=== PATIENT | male | born 1965 | race Caucasian/White ===

== ENCOUNTER 2024-04-13 09:09 | Observation (INO) | payer OTHER, SELFPAY ==
[2024-04-13] VITALS (52 sets, daily range): BP systolic 85–267; BP diastolic 46–130; PULSE 60–97; RESP 12–22; TEMP 36.6–37.2; O2SAT 94–100; BMI 29.5
--- NOTE | 2024-04-13 09:24 | DI.RAD.S_ITS ---
PROCEDURE: XR CHEST 1V INDICATIONS: chest pain TECHNIQUE: One view of the chest was acquired. COMPARISON: None. FINDINGS: Surgical changes and devices: None. Lungs and pleura: Lungs are clear. No pleural effusions or pneumothorax. Mediastinum: Mediastinal contours appear normal. Heart size is normal. Bones and chest wall: No suspicious bony lesions. Overlying soft tissues appear unremarkable. IMPRESSION: No acute cardiopulmonary abnormality is seen. Dictated by: Edgard Ndiaye M.D. on 04/13/2024 at 9:39 Approved by: Edgard Ndiaye M.D. on 04/13/2024 at 9:39
--- NOTE | 2024-04-13 09:30 | ED.GENADULT ---
HPI - General Adult General Chief complaint: Hypertension Stated complaint: High BP Time Seen by Provider: 04/13/24 09:30 Source: patient Mode of arrival: Family Vehicle History of Present Illness HPI narrative: 58-year-old male with elevated blood pressure, went to the dentist, in the office he found to have elevated blood pressures, referred to clinic, blood pressure also elevated, referred here for further treatment. He denies chest pain shortness of breath. He denies headache. He denies numbness or weakness to face arm or leg. He moved from [place] to [facility], has not found local provider, ran out of his previous blood pressure medications, believes he used to be on lisinopril, might have also been on metoprolol, also took atorvastatin medication. No recent illness symptoms, denies fever, denies nausea vomiting, denies abdominal discomfort, denies chest discomfort, denies pain to arm jaw back chest. Denies any sensation of shortness of breath. Related Data Home Medications Medication Instructions Recorded Confirmed losartan 100 1 tab PO DAILY 04/13/24 04/13/24 mg-hydrochlorothiazide 25 mg tablet Allergies Allergy/AdvReac Type Severity Reaction Status Date / Time No Known Drug Allergies Allergy Verified 04/13/24 09:27 Review of Systems Review of Systems Narrative: As per HPI Patient History Social History household members: none Smoking Status: Never smoker Smoking Status: Never smoker alcohol intake frequency: 0-2 drinks per day Substance Use Type: does not use Exam Narrative Exam Narrative: GENERAL: Well-developed patient, in no distress. HEAD: Atraumatic. Normocephalic. EYES: Pupils equal round and reactive. Extraocular motions intact. No scleral icterus. No injection or drainage. ENT: Nose without bleeding, purulent drainage. Throat without erythema, tonsillar hypertrophy or exudate. Airway patent. NECK: Trachea midline. Non tender CARDIOVASCULAR: Regular rate and rhythm without murmurs, gallops, or rubs. RESPIRATORY: Clear to auscultation. Breath sounds equal bilaterally. No wheezes, rales, or rhonchi. GASTROINTESTINAL: Abdomen soft, non-tender, nondistended. EXTREMITIES: No edema or joint tenderness. BACK: Nontender without deformity or crepitance. No flank tenderness. NEURO: AOx3. Nonfocal neuro exam. SKIN: No rash or erythema of visible areas Initial Vital Signs Initial Vital Signs: Vital Signs Temperature 99 F 04/13/24 09:24 Pulse Rate 80 04/13/24 09:24 Respiratory Rate 18 04/13/24 09:24 Blood Pressure 267/129 H 04/13/24 09:24 Pulse Oximetry 97 04/13/24 09:24 Oxygen Delivery Method Room Air 04/13/24 09:24 Course Orders Ordered: ED Orders 04/13/24 14:56 Troponin I Stat 04/13/24 15:53 EKG-12 Lead Stat 04/13/24 16:11 EKG-12 Lead Routine 04/13/24 16:16 CT angio chest abdomen pelvis Stat Acetaminophen (Acetaminophen 325 Mg Tablet) 650 mg PO Q6H PRN PRN Reason: Fever/Mild Pain (1-3) Aspirin (Aspirin Ec 81 Mg Tablet) 81 mg PO DAILY [facility] Chlorthalidone (Chlorthalidone 25 Mg Tablet) 12.5 mg PO BEDTIME [facility] Last Admin: 04/13/24 21:19 Dose: 12.5 mg Documented By: JULIO Dextrose (D10w) 100 mls @ 999 mls/hr IV PRN PRN PRN Reason: Hypoglycemia Insulin Glargine (Insulin Glargine 100 Unit/Ml 3ml Pen) 15 unit SUBCUT 2100 [facility] Last Admin: 04/13/24 21:23 Dose: 15 unit Documented By: JULIO Co-signed By: CARLOS Insulin Human Lispro (Insulin Lispro 100 Unit/Ml 3ml Vial) 0 unit SUBCUT ACHS [facility]; Protocol Last Admin: 04/13/24 21:23 Dose: 3 unit Documented By: JULIO Co-signed By: CARLOS Labetalol HCl (Labetalol 20 Mg/4 Ml Syringe) 10 mg IV Q10MIN PRN PRN Reason: SBP>= 180 or DBP >=110 Lisinopril (Lisinopril 20 Mg Tablet) 20 mg PO DAILY [facility] Naloxone HCl (Naloxone 0.4 Mg/Ml Vial) 0.2 mg IV Q2MIN PRN PRN Reason: Opiate Reversal Ondansetron HCl (Ondansetron 4 Mg/2 Ml Inj) 4 mg IV Q4HR PRN PRN Reason: Nausea And Vomiting Sodium Chloride (Sodium Chloride 0.9% Flush) 10 ml IV PRN PRN PRN Reason: Flush Sodium Chloride (Sodium Chloride 0.9% Flush) 10 ml IV BID [facility] Discontinued Medications Aspirin (Aspirin 81 Mg Chew Tab) 324 mg PO NOW ONE Stop: 04/13/24 09:25 Last Admin: 04/13/24 09:40 Dose: 324 mg Documented By: Carvedilol (Carvedilol 3.125 Mg Tablet) 3.125 mg PO BID TRINO Hydralazine HCl (Hydralazine 20 Mg/Ml Vial) 10 mg IV Q6HR PRN PRN Reason: Hypertension Last Admin: 04/13/24 09:40 Dose: 10 mg Documented By: Hydralazine HCl (Hydralazine 20 Mg/Ml Vial) 20 mg IV NOW ONE Stop: 04/13/24 11:29 Last Admin: 04/13/24 11:35 Dose: 20 mg Documented By: THAD Sodium Chloride (Normal Saline 0.9%) 1,000 mls @ 500 mls/hr IV BOLUS ONE Stop: 04/13/24 12:57 Last Infusion: 04/13/24 13:06 Dose: Infused Documented By: Admin: 04/13/24 11:12 Dose: 500 mls/hr Documented By: THAD Sodium Chloride (Normal Saline 0.9%) 1,000 mls @ 1,000 mls/hr IV BOLUS ONE Stop: 04/13/24 14:11 Last Infusion: 04/13/24 14:27 Dose: Infused Documented By: Admin: 04/13/24 13:18 Dose: 1,000 mls/hr Documented By: DARIUS Insulin Human Regular (Insulin Regular 100 Unit/Ml 3 Ml Vial) 5 unit SUBCUT NOW ONE Stop: 04/13/24 10:56 Last Admin: 04/13/24 11:07 Dose: 5 unit Documented By: THAD Co-signed By: DARIUS Labetalol HCl (Labetalol 20 Mg/4 Ml Syringe) 10 mg IV NOW ONE Stop: 04/13/24 09:42 Last Admin: 04/13/24 09:57 Dose: 10 mg Documented By: THAD Lisinopril (Lisinopril 20 Mg Tablet) 20 mg PO NOW ONE Stop: 04/13/24 10:55 Last Admin: 04/13/24 11:05 Dose: 20 mg Documented By: THAD Vital Signs Vital signs: Vital Signs - 8 hr 04/13/24 14:45 04/13/24 14:45 04/13/24 15:00 Pulse Rate 80 78 Respiratory Rate 17 Blood Pressure 171/79 H Pulse Oximetry 96 95 04/13/24 15:00 04/13/24 15:15 04/13/24 15:15 Pulse Rate 80 Respiratory Rate 21 Blood Pressure 174/74 H 178/83 H Pulse Oximetry 95 04/13/24 15:30 04/13/24 15:30 04/13/24 15:45 Pulse Rate 78 Respiratory Rate 22 Blood Pressure 169/75 H 173/81 H Pulse Oximetry 96 04/13/24 15:45 04/13/24 16:00 04/13/24 16:00 Pulse Rate 80 79 Respiratory Rate 17 21 Blood Pressure 168/75 H Pulse Oximetry 96 97 04/13/24 16:15 04/13/24 16:15 04/13/24 16:30 Pulse Rate 81 84 Respiratory Rate 20 15 Blood Pressure 172/82 H Pulse Oximetry 97 98 04/13/24 17:03 04/13/24 17:30 04/13/24 18:00 Pulse Rate 97 H 76 77 Respiratory Rate 16 14 Blood Pressure Pulse Oximetry 98 97 97 Medical Decision Making Lab Data Lab results reviewed: Yes I reviewed the patient's lab results. 04/13/24 09:28 04/13/24 09:28 Labs: Lab Results 04/13/24 04/13/24 04/13/24 Range/Units 09:28 09:32 14:56 WBC 6.2 (4.5-11.0) X10^3/uL RBC 5.49 (4.5-5.9) X10^6/uL Hgb 17.1 (13.5-17.5) g/dL Hct 47.6 (41-53) % MCV 86.7 (80-100) fL MCH 31.1 (26-34) PG MCHC 35.8 (30-36) % RDW 13.0 (11.6-14.8) % Plt Count 217 (150-400) X10^3/uL Neut % (Auto) 69.8 (50-75) % Lymph % (Auto) 21.7 L (25-40) % Wise % (Auto) 6.2 (3-14) % Eos % (Auto) 1.7 L (2-4) % Baso % (Auto) 0.6 (0-2) % Neut # (Auto) 4300 (9703-5436) /uL Lymph # (Auto) 1300 (7115-8537) /uL Wise # (Auto) 400 (0-900) /uL Eos # (Auto) 100 (0-450) /uL Baso # (Auto) 0 (0-100) /uL PT 10.8 (9.4-12.5) SECONDS INR 0.9 (0.9-1.3) APTT 35 (25.1-36.5) SECONDS Sodium 136 L (137-145) mmol/L Potassium 3.9 (3.4-5.1) mmol/L Chloride 98 (98-107) mmol/L Carbon Dioxide 32 (22-32) mmol/L BUN 14 (9-20) mg/dL Creatinine 0.75 (0.66-1.25) mg/dL Estimated GFR > 60 (>60) mL/min BUN/Creatinine Ratio 18.7 (6-22) Glucose 378 H (70-100) mg/dL Hemoglobin A1c 11.6 H (4.0-6.0) % Calcium 9.1 (8.4-10.2) mg/dL Magnesium 2.1 (1.6-2.3) mg/dL Total Bilirubin 0.9 (0.2-1.3) mg/dL AST 24 (17-59) IU/L ALT 30 (<50) IU/L Alkaline Phosphatase 102 (38-126) U/L Total Creatine Kinase 115 (55-170) U/L Troponin I < 0.012 0.016 (0.01-0.034) ng/mL Total Protein 7.9 (6.3-8.2) g/dL Albumin 4.7 (3.5-5.0) g/dL Globulin 3.2 (1.7-4.1) g/dL Albumin/Globulin Ratio 1.5 (1.0-2.8) Triglycerides 192 H (35-150) mg/dL Cholesterol 185 (140-199) mg/dL LDL Cholesterol, Calc 106 H (<100) mg/dL HDL Cholesterol 41 (40-60) mg/dL Lipase 135 (23-300) U/L TSH 3.04 (0.47-4.68) uIU/mL Point of Care Testing Glucose POC 328 Point of care testing: Point of Care Testing Glucose POC 328 Imaging Data Chest x-ray: Radiologist's Impression: [address] [id number] XRay Report Signed Patient: Ford Asif MR#: [id number] : 1965 Acct:[id number] Age/Sex: 58 / M Date of Service: 04/13/24 Loc: ED Accession Number: [id number] Procedure: XR chest 1V Ordering Provider: Mando Harris MD PROCEDURE: XR CHEST 1V INDICATIONS: chest pain TECHNIQUE: One view of the chest was acquired. COMPARISON: None. FINDINGS: Surgical changes and devices: None. Lungs and pleura: Lungs are clear. No pleural effusions or pneumothorax. Mediastinum: Mediastinal contours appear normal. Heart size is normal. Bones and chest wall: No suspicious bony lesions. Overlying soft tissues appear unremarkable. IMPRESSION: No acute cardiopulmonary abnormality is seen. Dictated by: Edgard Ndiaye M.D. on 04/13/2024 at 9:39 Approved by: Edgard Ndiaye M.D. on 04/13/2024 at 9:39 CT Chest Abdomen Pelvis: Radiologist's Impression: [address] [address] [address] Scan Report Signed Patient: Ford Asif MR#: [id number] : 1965 Acct:[id number] Age/Sex: 58 / M Date of Service: 04/13/24 Loc: ED Accession Number: [id number] Procedure: CT angio chest abdomen pelvis Ordering Provider: Mando Harris MD PROCEDURE: CT ANGIO CHEST ABDOMEN PELVIS INDICATIONS: aortogram, very elevated BP TECHNIQUE: Precontrast 5 mm thick sections acquired from the lung apices to the iliac crests. After the administration of intravenous contrast, 2.5 mm thick sections again acquired from the lung apices to the iliac crests. Maximum intensity projection (MIP) oblique sagittal and coronal reformats were then acquired. For radiation dose reduction, the following was used: automated exposure control. COMPARISON: None. FINDINGS: Image quality: Diagnostic. AORTA: Thoracic aorta is normal caliber. Great vessel origins are widely patent and appear normal. No dissection or aortic aneurysm. No intramural hematoma. Descending thoracic and abdominal aorta are also normal caliber. Minimal scattered calcific atherosclerotic plaque. CHEST: Lower Neck: No adenopathy. Thyroid: Normal CT appearance. Axillae: No adenopathy. Chest Wall: No suspicious mass. Lungs and Pleura: Central and peripheral airways are normal without bronchial wall thickening or bronchiectasis. No suspicious nodule, mass, ground-glass opacity, or consolidation. No pleural effusion or pleural calcification. Heart: The heart size is normal. Left ventricular myocardium appears subjectively thickened. No pericardial effusion. Thoracic Vessels: Dilated pulmonary outflow tract at 3.5 cm. Normal caliber pulmonary arteries. Mediastinum and Francisca: No enlarged lymph nodes. Esophagus: No wall thickening. No hiatal hernia. ABDOMEN: Liver: No contour deforming solid mass in the absence of contrast. Gallbladder: No wall thickening or calcified stones. Biliary ducts: No biliary dilation. Pancreas: Normal size and morphology without visible ductal dilatation or inflammation. Spleen: Size is within normal limits. Adrenal Glands: No adrenal nodules. Kidneys and Ureters: Symmetric enhancement. No nephrolithiasis or hydronephrosis. No hydroureter. Stomach and Bowel: Stomach and small bowel loops are normal caliber. Normal quantity of colonic stool. No suspicious colon wall thickening or inflammation. Normal appendix. Peritoneum: No abnormal intraperitoneal fluid. No free air. Ventral Wall: No hernia. Abdominal Nodes: No retroperitoneal or mesenteric adenopathy by size criteria. Vessels: Inferior vena cava is normal in size. PELVIS: Pelvic Organs: Mild prostatomegaly. Bladder: Distended. No wall thickening. Pelvic Nodes: No enlarged lymph nodes. Miscellaneous: Small bilateral fat containing inguinal hernias. Bones: No suspicious bone lesions. IMPRESSION: Normal aorta without acute aortic syndrome. Possible left ventricular hypertrophy. Consider cardiology consult. Dilated pulmonary outflow tract may indicate pulmonary artery hypertension. No other acute process in the chest, abdomen, or pelvis. Dictated by: Talita Brewster M.D. on 04/13/2024 at 17:06 Approved by: Talita Brewster M.D. on 04/13/2024 at 17:15 ECG Data Attestation: I personally reviewed and interpreted this ECG as follows: Interpretation: Study 0928, Normal sinus rhythm with rate of 81, upsloping ST segment elevation changes lead 3 and F also V2 V3, favor early Re pole. SD 180, QRS 112, QTC 460. Study 1611, normal sinus rhythm with rate of 81, same upsloping ST segment elevations lead 3 and F, V2 V3, no change in intervals. No significant change from previous EKG this visit. [facility] Narrative Medical decision making narrative: 58-year-old male with history of hypertension, off lisinopril and metoprolol medications after moving from [place] to [facility], no local established provider, at dentist office this morning had elevated blood pressure, at triage here also markedly elevated, 267/129 similar in both arms, without chest pain, without neuro symptoms. EKG shows normal sinus rhythm, no obvious ischemic changes. Chest x-ray portable study without obvious mediastinal widening, no pleural capping. Lab tests pending. Heart rate 70s, IV labetalol 10 mg, IV hydralazine 10 mg, we will likely give his oral medications, check GFR/creatinine to see the CASSIDY-inhibitor appropriate. Systolic blood pressure 200, decreased from 260 after IV hydralazine and labetalol, GFR normal, we will give oral lisinopril dose. Elevated glucose 300s, normal anion gap, doubt DKA, potassium level normal, IV fluid bolus, subcutaneous regular insulin, we will send hemoglobin A1c for follow up provider CT aortogram showed no coarctation or abnormalities. No renovascular abnormalities noted. We will repeat troponin, contact cardiology for follow up Repeat troponin negative. We will contact cardiology for follow up recommendations. Case discussed with cardiology Dr. Longoria, advises admission to further titrate blood pressure control and also for diabetes control. We will contact hospitalist [id number], case discussed with hospitalist Dr. Garcia, accepts patient to observation Critical Care Time Critical Care Time Critical Care Time: Yes Total Critical Care Time: 31 Attestation: The high probability of a clinically significant, sudden or life threatening deterioration of the [cardiopulmonary] system(s) required my full and direct attention, intervention and personal management. The aggregate critical care time was [31] minutes. This time is in addition to time spent performing reported procedures but includes the following: [x] Data Review and interpretation [x] Patient assessment and monitoring of vital signs [x] Documentation [x] Medication orders and management Discharge Plan Departure Patient Disposition: Admitted as Observation Clinical Impression: Hypertensive urgency, Diabetes mellitus Admit Date/Time: 04/13/24 18:00 Admit Provider: Mariusz Garcia
[2024-04-13] MEDS: HYDRALAZINE 20 MG/ML VIAL 10 MG IV (09:40)
[2024-04-13] MEDS: ASPIRIN 81 MG CHEW TAB 324 MG PO (09:40)
[2024-04-13 09:43] LABS: INR 0.9 (0.9-1.3); Prothrombin Time 10.8 SECONDS (9.4-12.5)
[2024-04-13 09:45] LABS: PTT Partial Thromboplastin Tim 35 SECONDS (25.1-36.5)
[2024-04-13 09:47] LABS: Alanine Aminotransferase 30 IU/L (<50); Albumin 4.7 g/dL (3.5-5.0); Albumin Globulin Ratio 1.5 (1.0-2.8); Alkaline Phosphatase 102 U/L (38-126); Aspartate Aminotransferase 24 IU/L (17-59); BUN Creatinine Ratio 18.7 (6-22); Bilirubin Total 0.9 mg/dL (0.2-1.3); Blood Urea Nitrogen 14 mg/dL (9-20); Calcium 9.1 mg/dL (8.4-10.2); Carbon Dioxide 32 mmol/L (22-32); Chloride 98 mmol/L (98-107); Creatine Kinase 115 U/L (55-170); Estimated Glomerular Filt Rate > 60 mL/min (>60); Globulin 3.2 g/dL (1.7-4.1); Glucose 378 mg/dL (70-100); HEMOLYSIS < 15 (0-50); Lipase 135 U/L (23-300); Magnesium 2.1 mg/dL (1.6-2.3); Potassium 3.9 mmol/L (3.4-5.1); Sodium 136 mmol/L (137-145); Total Protein 7.9 g/dL (6.3-8.2)
[2024-04-13 09:57] LABS: Add Manual Diff / Slide Review NO; Basophils Absolute Auto 0 /uL (0-100); Basophils Percent Auto 0.6 % (0-2); Eosinophils Absolute Auto 100 /uL (0-450); Eosinophils Percent Auto 1.7 % (2-4); Hematocrit 47.6 % (41-53); Hemoglobin 17.1 g/dL (13.5-17.5); Lymphocytes Absolute Auto 1300 /uL (1100-4500); Lymphocytes Percent Auto 21.7 % (25-40); Mean Corpuscular HGB Conc 35.8 % (30-36); Mean Corpuscular Hemoglobin 31.1 PG (26-34); Mean Corpuscular Volume 86.7 fL (80-100); Monocytes Absolute Auto 400 /uL (0-900); Monocytes Percent Auto 6.2 % (3-14); Neutrophils Absolute Auto 4300 /uL (1500-7000); Neutrophils Percent Auto 69.8 % (50-75); Platelet Count 217 X10^3/uL (150-400); Red Blood Cell Count 5.49 X10^6/uL (4.5-5.9); White Blood Cell Count 6.2 X10^3/uL (4.5-11.0)
[2024-04-13] MEDS: LABETALOL 20 MG/4 ML SYRINGE 10 MG IV (09:57)
[2024-04-13 09:59] LABS: Troponin I < 0.012 ng/mL (0.01-0.034)
[2024-04-13] MEDS: lisinopriL 20 MG TABLET PO (11:05)
[2024-04-13] MEDS: INSULIN REGULAR 100 UNIT/ML 3 ML VIAL SUBCUT (11:07)
[2024-04-13] MEDS: SODIUM CHLORIDE 0.9% 1,000 ML 500 ML IV (11:12)
[2024-04-13 11:18] LABS: Hemoglobin A1C% w Est Avg Glu 11.6 % (4.0-6.0)
[2024-04-13] MEDS: HYDRALAZINE 20 MG/ML VIAL IV (11:35)
--- NOTE | 2024-04-13 12:35 | PC.NURSE ---
Pt states he has not taken his bp meds x3 months due [place]. Pt states he was at the dentist office when they stated he needed to come to the ER to have his bp addressed. Pt states he has no headache, blurred vision--pt states he is asymptomatic.
[2024-04-13] MEDS: SODIUM CHLORIDE 0.9% 1,000 ML 1000 ML IV (13:18)
[2024-04-13 15:29] LABS: Troponin I 0.016 ng/mL (0.01-0.034)
--- NOTE | 2024-04-13 15:46 | CM.MNRNOTE ---
Reassess; no change. Pt remains asymptomatic.
--- NOTE | 2024-04-13 16:16 | DI.CT.S_ITS ---
PROCEDURE: CT ANGIO CHEST ABDOMEN PELVIS INDICATIONS: aortogram, very elevated BP TECHNIQUE: Precontrast 5 mm thick sections acquired from the lung apices to the iliac crests. After the administration of intravenous contrast, 2.5 mm thick sections again acquired from the lung apices to the iliac crests. Maximum intensity projection (MIP) oblique sagittal and coronal reformats were then acquired. For radiation dose reduction, the following was used: automated exposure control. COMPARISON: None. FINDINGS: Image quality: Diagnostic. AORTA: Thoracic aorta is normal caliber. Great vessel origins are widely patent and appear normal. No dissection or aortic aneurysm. No intramural hematoma. Descending thoracic and abdominal aorta are also normal caliber. Minimal scattered calcific atherosclerotic plaque. CHEST: Lower Neck: No adenopathy. Thyroid: Normal CT appearance. Axillae: No adenopathy. Chest Wall: No suspicious mass. Lungs and Pleura: Central and peripheral airways are normal without bronchial wall thickening or bronchiectasis. No suspicious nodule, mass, ground-glass opacity, or consolidation. No pleural effusion or pleural calcification. Heart: The heart size is normal. Left ventricular myocardium appears subjectively thickened. No pericardial effusion. Thoracic Vessels: Dilated pulmonary outflow tract at 3.5 cm. Normal caliber pulmonary arteries. Mediastinum and Francisca: No enlarged lymph nodes. Esophagus: No wall thickening. No hiatal hernia. ABDOMEN: Liver: No contour deforming solid mass in the absence of contrast. Gallbladder: No wall thickening or calcified stones. Biliary ducts: No biliary dilation. Pancreas: Normal size and morphology without visible ductal dilatation or inflammation. Spleen: Size is within normal limits. Adrenal Glands: No adrenal nodules. Kidneys and Ureters: Symmetric enhancement. No nephrolithiasis or hydronephrosis. No hydroureter. Stomach and Bowel: Stomach and small bowel loops are normal caliber. Normal quantity of colonic stool. No suspicious colon wall thickening or inflammation. Normal appendix. Peritoneum: No abnormal intraperitoneal fluid. No free air. Ventral Wall: No hernia. Abdominal Nodes: No retroperitoneal or mesenteric adenopathy by size criteria. Vessels: Inferior vena cava is normal in size. PELVIS: Pelvic Organs: Mild prostatomegaly. Bladder: Distended. No wall thickening. Pelvic Nodes: No enlarged lymph nodes. Miscellaneous: Small bilateral fat containing inguinal hernias. Bones: No suspicious bone lesions. IMPRESSION: Normal aorta without acute aortic syndrome. Possible left ventricular hypertrophy. Consider cardiology consult. Dilated pulmonary outflow tract may indicate pulmonary artery hypertension. No other acute process in the chest, abdomen, or pelvis. Dictated by: Talita Brewster M.D. on 04/13/2024 at 17:06 Approved by: Talita Brewster M.D. on 04/13/2024 at 17:15
--- NOTE | 2024-04-13 18:00 | PM.HP.1 ---
History of Present Illness History of Present Illness Date Patient Seen: 04/13/24 Chief complaint: High BP Narrative: Ford Asif is a 58yo M with PMH of HTN who presents to the ED after being found at the dentist's office to have blood pressures of 230/140. Patient recently moved from [facility] and hasn't taken any of his medications for 3 months. He previously was on blood pressure meds for over 10 years and he took lisinopril and metoprolol. He also previously used insulin, metformin and a CGM device. 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 He denies headache, CP, NV, abd pain, vertigo, visual changes or LE swelling. [facility] Social History household members: none Smoking Status: Never smoker Meds Home Medications and Allergies Allergies Allergy/AdvReac Type Severity Reaction Status Date / Time No Known Drug Allergies Allergy Verified 04/13/24 09:27 Review of Systems Review of Systems Narrative: All other systems reviewed with the patient and are negative unless otherwise stated. Exam Vital Signs (past 8 hours): - 04/13/24 10:01 04/13/24 10:01 04/13/24 10:10 Pulse Rate 79 70 Respiratory Rate 15 Blood Pressure 249/119 H Pulse Oximetry 98 98 04/13/24 10:10 04/13/24 10:21 04/13/24 10:21 Pulse Rate 71 Respiratory Rate 17 Blood Pressure 228/100 H 202/98 H Pulse Oximetry 96 04/13/24 10:30 04/13/24 10:30 04/13/24 10:40 Pulse Rate 73 72 Respiratory Rate 13 14 Blood Pressure 213/100 H Pulse Oximetry 96 95 04/13/24 10:40 04/13/24 10:41 04/13/24 10:41 Pulse Rate 71 Respiratory Rate 12 Blood Pressure 206/100 H 213/99 H Pulse Oximetry 95 04/13/24 10:50 04/13/24 10:50 04/13/24 11:00 Pulse Rate 72 Respiratory Rate 19 Blood Pressure 201/92 H 208/100 H Pulse Oximetry 94 04/13/24 11:00 04/13/24 11:11 04/13/24 11:11 Pulse Rate 73 75 Respiratory Rate 16 14 Blood Pressure 228/107 H Pulse Oximetry 94 96 04/13/24 11:20 04/13/24 11:20 04/13/24 11:30 Pulse Rate 72 70 Respiratory Rate 19 19 Blood Pressure 207/97 H Pulse Oximetry 94 96 04/13/24 11:30 04/13/24 11:35 04/13/24 11:39 Pulse Rate 71 74 Respiratory Rate 15 Blood Pressure 201/98 H 201/98 H Pulse Oximetry 95 04/13/24 11:39 04/13/24 11:40 04/13/24 11:40 Pulse Rate 74 Respiratory Rate 17 Blood Pressure 186/88 H 174/81 H Pulse Oximetry 94 04/13/24 11:50 04/13/24 11:50 04/13/24 12:00 Pulse Rate 81 Respiratory Rate 14 Blood Pressure 185/83 H 177/68 H Pulse Oximetry 95 04/13/24 12:00 04/13/24 12:10 04/13/24 12:10 Pulse Rate 79 80 Respiratory Rate 12 13 Blood Pressure 175/77 H Pulse Oximetry 94 94 04/13/24 12:20 04/13/24 12:20 04/13/24 12:30 Pulse Rate 80 Respiratory Rate 16 Blood Pressure 163/71 H 165/73 H Pulse Oximetry 94 04/13/24 12:30 04/13/24 12:40 04/13/24 12:40 Pulse Rate 80 75 Respiratory Rate 14 13 Blood Pressure 150/59 H Pulse Oximetry 95 94 04/13/24 12:50 04/13/24 12:50 04/13/24 13:00 Pulse Rate 73 Respiratory Rate 16 Blood Pressure 133/61 121/56 L Pulse Oximetry 96 04/13/24 13:00 04/13/24 13:10 04/13/24 13:10 Pulse Rate 67 Respiratory Rate 13 Blood Pressure 85/46 L Pulse Oximetry 96 97 04/13/24 13:12 04/13/24 13:12 04/13/24 13:21 Pulse Rate 60 Respiratory Rate 17 Blood Pressure 96/51 L 110/80 Pulse Oximetry 97 04/13/24 13:21 04/13/24 13:21 04/13/24 13:22 Pulse Rate 72 Respiratory Rate 15 Blood Pressure 119/58 L 110/60 Pulse Oximetry 95 04/13/24 13:30 04/13/24 13:30 04/13/24 13:45 Pulse Rate 71 69 Respiratory Rate 21 18 Blood Pressure 132/60 Pulse Oximetry 97 95 04/13/24 13:45 04/13/24 14:00 04/13/24 14:00 Pulse Rate 72 Respiratory Rate Blood Pressure 148/67 H 150/69 H Pulse Oximetry 96 04/13/24 14:15 04/13/24 14:15 04/13/24 14:30 Pulse Rate 73 80 Respiratory Rate 19 20 Blood Pressure 161/74 H Pulse Oximetry 97 95 04/13/24 14:30 04/13/24 14:45 04/13/24 14:45 Pulse Rate 80 Respiratory Rate Blood Pressure 170/77 H 171/79 H Pulse Oximetry 96 04/13/24 15:00 04/13/24 15:00 04/13/24 15:15 Pulse Rate 78 80 Respiratory Rate 17 21 Blood Pressure 174/74 H Pulse Oximetry 95 95 04/13/24 15:15 04/13/24 15:30 04/13/24 15:30 Pulse Rate 78 Respiratory Rate 22 Blood Pressure 178/83 H 169/75 H Pulse Oximetry 96 Oxygen Delivery Method Room Air Narrative Exam Narrative: GEN: no acute distress HEENT: moist mucous membranes, PERRL NECK: trachea midline, no JVD CV: regular rate and rhythm, no murmurs PULM: clear bilaterally ABD: soft, nontender, nondistended, no organomegaly EXT: warm and well perfused with no edema NEURO: awake, alert, oriented, no focal deficits Objective Labs 04/13/24 09:28 04/13/24 09:28 Labs: Laboratory Results - last 24 hr 04/13/24 04/13/24 04/13/24 09:28 09:32 14:56 WBC 6.2 RBC 5.49 Hgb 17.1 Hct 47.6 MCV 86.7 MCH 31.1 MCHC 35.8 RDW 13.0 Plt Count 217 Neut % (Auto) 69.8 Lymph % (Auto) 21.7 L Thayer % (Auto) 6.2 Eos % (Auto) 1.7 L Baso % (Auto) 0.6 Neut # (Auto) 4300 Lymph # (Auto) 1300 Thayer # (Auto) 400 Eos # (Auto) 100 Baso # (Auto) 0 PT 10.8 INR 0.9 APTT 35 Sodium 136 L Potassium 3.9 Chloride 98 Carbon Dioxide 32 BUN 14 Creatinine 0.75 Estimated GFR > 60 BUN/Creatinine Ratio 18.7 Glucose 378 H Hemoglobin A1c 11.6 H Calcium 9.1 Magnesium 2.1 Total Bilirubin 0.9 AST 24 ALT 30 Alkaline Phosphatase 102 Total Creatine Kinase 115 Troponin I < 0.012 0.016 Total Protein 7.9 Albumin 4.7 Globulin 3.2 Albumin/Globulin Ratio 1.5 Lipase 135 Assessment & Plan Assessment & Plan narrative: # hypertensive urgency -BP 267/129 in ED, patient asymptomatic -start lisinopril and chlorthalidone -IV labetalol PRN -check echo -check renin/aldosterone ratio, UA, protein/creatinine ratio, TSH, lipids, repeat trop -tele # uncontrolled DM2 -A1c 11%, previously on metformin and insulin -start lantus 15u, restart metformin on discharge -SSI -coordinate measuring 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 DVT prophylaxis with SCDs. I have reviewed home meds and used all available resources to reconcile the home meds. Case discussed with ED physician/APC and patient will be admitted to the hospitalist service for further workup and management. This patient will be admitted as observation and will require less than 2 midnights of hospital time to treat hypertensive urgency.
--- NOTE | 2024-04-13 18:05 | DI.ECHO.S_ITS ---
[facility]+ [facility] : : [address] : [place] : : [id number] : : Phone: [phone] Echocardiogram Report + + :Name: ALANIS CAMEJO Study Date: 04/14/2024 Height: 78 in : :Hospital ReadingLocation: Weight: 260 lb : : Gender: Male BSA: 2.5 m2 : :: 1965 Age: 58 yrs BP: 165/81 mmHg: :Reason For Study: HYPERTENSIVE URGENCY : :Ordering Physician: SEBASTIAN, : :MALIK Ross Performed By: Ghislaine Stoddard : :Referring: MALIK CORTES : + + Interpretation Summary The left ventricle is normal in size. Left ventricular systolic function appears normal without focal wall motion abnormalities. The ejection fraction is estimated to be 60-65%. Diastolic parameters suggest a pseudonormalization pattern, consistent with probable elevated filling pressures. The right ventricle is normal in size and function. The left atrium is mildly dilated. There is mild mitral regurgitation. The ascending aorta is mildly enlarged. Procedure: A two-dimensional transthoracic echocardiogram with color flow and Doppler was performed. The study quality was technically adequate. There is no prior echocardiogram noted for this patient. The patient was in sinus rhythm with heart rates between 61-69 bpm during the exam. Left Ventricle: The left ventricle is normal in size. Left ventricular wall thickness is moderate-severely increased. Left ventricular systolic function appears normal without focal wall motion abnormalities. The ejection fraction is estimated to be 60-65%. Diastolic parameters suggest a pseudonormalization pattern, consistent with probable elevated filling pressures. Right Ventricle: The right ventricle is normal in size and function. Atria: The left atrium is mildly dilated. Right atrial size is normal. There is no Doppler evidence for an interatrial shunt. Mitral Valve: The mitral valve leaflets appear mildly thickened, but open well. There is mild mitral regurgitation. Aortic Valve: The aortic valve is grossly normal. The aortic valve opens well. There is no aortic valve stenosis. There is trace aortic regurgitation. Tricuspid Valve: The tricuspid valve is normal in structure and function. There is trace tricuspid regurgitation. Pulmonic Valve: The pulmonic valve leaflets are thin and pliable; valve motion is normal. There is trace pulmonic regurgitation. Great Vessels: The aortic root is normal size. The ascending aorta is mildly enlarged. The IVC is of normal diameter and collapses greater than 50% with a sniff. This suggests a low right atrial pressure of 3 mm Hg. Pericardium/ Pleura There is no pericardial effusion. There is no pleural effusion. MMode/2D Measurements & Calculations LVIDd: 4.8 cm LVOT diam: 2.2 cm LVIDs: 2.8 cm Ao root diam: 3.3 cm FS: 42.5 % asc Aorta Diam: 3.6 cm EPSS: 0.46 cm Ao Arch Diam (Prox Trans): 2.9 cm IVSd: 2.1 cm LVPWd: 1.5 cm LV hernandez. diameter/BSA (cm/m^2): 1.9 LV sys. diameter/BSA (cm/m^2): 1.1 LA A2 area: 29.4 cm2 RA long axis: 5.9 cm LA A4 area: 23.8 cm2 RA area: 23.1 cm2 LA length (vol): 6.1 cm RA vol: 77.3 ml LA vol: 96.4 ml RA : 30.6 ml/m2 LA vol index: 38.2 ml/m2 IVC diam: 1.6 cm RVD1 (basal): 3.8 cm TAPSE: 1.7 cm Doppler Measurements & Calculations Ao V2 max: 155.3 cm/sec LVOT Max Gilbert: 111.9 cm/sec Ao V2 mean: 110.0 cm/sec LV V1 max P.0 mmHg Ao max P.6 mmHg LV V1 VTI: 22.9 cm Ao mean P.3 mmHg SUSANA(I,D): 2.6 cm2 Ao V2 VTI: 34.3 cm SUSANA(V,D): 2.8 cm2 sev ratio: 0.67 SUSANA indexed to BSA (cm^2/m^2): 1.0 MV E max gilbert: 82.4 cm/sec PA V2 max: 95.3 cm/sec MV A max gilbert: 75.6 cm/sec PA V2 mean: 74.7 cm/sec MV E/A: 1.1 PA mean P.4 mmHg Med Peak E' Gilbert: 4.6 cm/sec PA pr(Accel): 27.6 mmHg E/E' med: 18.0 Lat Peak E' Gilbert: 3.7 cm/sec E/E' lat: 22.5 E/e' average: 20.3 MV dec time: 0.27 sec SV(LVOT): 89.3 ml Reading Physician:09:11 AM
--- NOTE | 2024-04-13 18:22 | PC.NURSE ---
Reassess; no change. pt remains asymptomatic
[2024-04-13 19:12] LABS: Cholesterol 185 mg/dL (140-199); HDL Cholesterol 41 mg/dL (40-60); LDL Cholesterol Calculated 106 mg/dL (<100); Triglycerides 192 mg/dL (35-150)
[2024-04-13 19:43] LABS: TSH w/ Reflex to FT4 3.04 uIU/mL (0.47-4.68)
[2024-04-13] MEDS: CHLORTHALIDONE 25 MG TABLET 12.5 MG PO (21:19)
[2024-04-13] MEDS: INSULIN GLARGINE 100 UNIT/ML 3ML PEN 15 UNIT SUBCUT (21:23)
[2024-04-13] MEDS: INSULIN LISPRO 100 UNIT/ML 3ML VIAL SUBCUT (21:23)
[2024-04-14] VITALS: BP 172/80; PULSE 72; RESP 16; TEMP 36.6; O2SAT 97
[2024-04-14 04:00] VITALS: BP 165/81; PULSE 66; RESP 18; TEMP 36.4; O2SAT 97
[2024-04-14 04:51] LABS: Add Manual Diff / Slide Review NO; Basophils Absolute Auto 0 /uL (0-100); Basophils Percent Auto 0.8 % (0-2); Eosinophils Absolute Auto 200 /uL (0-450); Eosinophils Percent Auto 3.5 % (2-4); Hematocrit 42.5 % (41-53); Hemoglobin 15.1 g/dL (13.5-17.5); Lymphocytes Absolute Auto 1600 /uL (1100-4500); Mean Corpuscular HGB Conc 35.4 % (30-36); Mean Corpuscular Hemoglobin 31.3 PG (26-34); Mean Corpuscular Volume 88.4 fL (80-100); Monocytes Absolute Auto 400 /uL (0-900); Monocytes Percent Auto 7.1 % (3-14); Neutrophils Absolute Auto 3400 /uL (1500-7000); Neutrophils Percent Auto 60.6 % (50-75); Platelet Count 197 X10^3/uL (150-400); Red Blood Cell Count 4.81 X10^6/uL (4.5-5.9); White Blood Cell Count 5.6 X10^3/uL (4.5-11.0)
[2024-04-14 06:01] LABS: BUN Creatinine Ratio 21.3 (6-22); Blood Urea Nitrogen 17 mg/dL (9-20); Calcium 8.4 mg/dL (8.4-10.2); Carbon Dioxide 29 mmol/L (22-32); Chloride 105 mmol/L (98-107); Estimated Glomerular Filt Rate > 60 mL/min (>60); Glucose 278 mg/dL (70-100); HEMOLYSIS < 15 (0-50); Potassium 3.7 mmol/L (3.4-5.1); Sodium 137 mmol/L (137-145)
[2024-04-14 06:11] LABS: Troponin I 0.091 ng/mL (0.01-0.034)
--- NOTE | 2024-04-14 06:57 | PC.NURSE ---
Dr. Rogel notified with elevated troponin 0.091. Patient denies chest pain, dizziness or headache.Will report today
[2024-04-14 08:00] VITALS: BP 185/88; PULSE 67; RESP 16; TEMP 36.3; O2SAT 98
[2024-04-14] MEDS: ASPIRIN EC 81 MG TABLET PO (08:03)
[2024-04-14] MEDS: lisinopriL 20 MG TABLET PO ×2 (08:03→11:49)
[2024-04-14] MEDS: INSULIN LISPRO 100 UNIT/ML 3ML VIAL SUBCUT ×2 (08:04→11:50)
[2024-04-14] MEDS: SODIUM CHLORIDE 0.9% FLUSH 10 ML IV (08:07)
[2024-04-14 09:57] LABS: Creatinine Urine Random 160.21 mg/dL; Protein (Total) Urine Random 11 mg/dL (0-12); Protein Creatinine Ratio Urine 0.06 GRAM/24H
[2024-04-14 10:36] LABS: Troponin I 0.069 ng/mL (0.01-0.034)
[2024-04-14 11:41] VITALS: BP 171/85; PULSE 67; RESP 19; TEMP 36.1; O2SAT 95
--- NOTE | 2024-04-14 11:54 | DIET.CONS ---
Dietary Consultation Note Admission Date: 04/13/2024 18:00 Assessment: 58 y M admitted for hypertensive urgency. Nutrition consulted for A1c 11%, type 2 diabetes Met with pt at bedside who reports no medication or CGM for 3 months after moving. Was previously on metformin and insulin. Reports correction dosing insulin before meals. Reports A1c was around 8% during this time. Is going to get outpatient PCP here to restart medications for BP and DM. Ht: 200 cm Wt: 117.934 kg BMI: 29.5 UBW: - Last BM: 04/13/24 (04/13/24 18:08) MNA: 14 Jose Score: 23 Diet: 04/13/24 Dinner Heart Healthy Diet Diet Modifications: medium carbs Sodium Level: 2 gm Sodium Labs: RBC 4.81 X10^6/uL (4.5-5.9) 04/14/24 04:32 Hgb 15.1 g/dL (13.5-17.5) 04/14/24 04:32 Hct 42.5 % (41-53) 04/14/24 04:32 Creatinine 0.80 mg/dL (0.66-1.25) 04/14/24 04:32 Hemoglobin A1c 11.6 % (4.0-6.0) H 04/13/24 09:32 Nutrition Diagnosis: Altered A1c r/t endocrine dysfunction aeb A1C 11.6% Interventions: 1. Provided nutrition educ for type 2 diabetes -balanced meals, carb counting, consistent carbs, BG monitoring 2. Provided information for assistant health educator Monitoring/Evaluations: f/u prn, pt d/c today Electronically Signed by: Nupur Flower 04/14/24 11:54 Clinical Dietitian [address] [address]
--- NOTE | 2024-04-14 13:01 | P.DS_ITS ---
History of Present Illness History of Present Illness Chief complaint: High BP Narrative: Ford Asif is a 58yo M with PMH of HTN who presents to the ED after being found at the dentist's office to have blood pressures of 230/140. Patient recently moved from [facility] and hasn't taken any of his medications for 3 months. He previously was on blood pressure meds for over 10 years and he took lisinopril and metoprolol. He also previously used insulin, metformin and a CGM device. 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 He denies headache, CP, NV, abd pain, vertigo, visual changes or LE swelling. Discharge Providers Provider Date of admission: 04/13/24 18:00 Discharge Date: 04/14/24 Primary care physician: Doctor Juan Manuel MD Consults: 04/13/24 18:11 Consult to Dietitian, Adult Routine Comment: Reason For Exam: A1c 11% Discharge provider: Mariusz Garcia DO Summary Hospital Course Discharge Diagnosis: # hypertensive urgency/emergency -BP 267/129 in ED, patient asymptomatic. CTA CAP without dissection or AAA. -start lisinopril 20mg BID and chlorthalidone 12.5mg nightly, also baby aspirin due to CAD risk -IV labetalol PRN -echo with EF 60-65%, diastolic dysfunction, mildly enlarged ascending aorta, mildly dilated LA, and mild MR, no WMA -renin/aldosterone ratio pending, protein/creatinine ratio normal, TSH normal, LDL 106 -initialy troponins negative x2, then isabella slightly to 0.091 then downtrended, likely due to severe HTN. No WMA on echo and no CP. # uncontrolled DM2 -A1c 11%, previously on metformin and insulin -start lantus 25u, restarted metformin on discharge -SSI -hat trimmer consulted Hospital Course: Admitted for asymptomatic hypertensive urgency/emergency. Given IV and po antihypertensives. Restarted on lantus and metformin. Labs sent for hyperaldosteronism and are pending. Placed on baby aspirin daily and lipitor. Meds prescribed on discharge and he will obtain new PCP to manage HTN, HLD and DM2 going forward. Exam Vital Signs (past 8 hours): - 04/14/24 07:00 04/14/24 08:00 04/14/24 11:41 Temperature 97.4 F L 97.0 F L Pulse Rate 67 67 Respiratory Rate 16 19 Blood Pressure 185/88 H 171/85 H Pulse Oximetry 98 95 Oxygen Delivery Method Room Air Oxygen Flow Rate 0 Oxygen Delivery Method Room Air Oxygen Flow Rate 0 Narrative Exam Narrative: GEN: no acute distress, very tall HEENT: moist mucous membranes, PERRL NECK: trachea midline, no JVD CV: regular rate and rhythm, no murmurs PULM: clear bilaterally ABD: soft, nontender, nondistended, no organomegaly EXT: warm and well perfused with no edema NEURO: awake, alert, oriented, no focal deficits Objective Labs 04/14/24 04:32 04/14/24 04:32 Labs: Laboratory Results - last 24 hr 04/13/24 04/13/24 04/14/24 09:28 14:56 04:32 WBC 5.6 RBC 4.81 Hgb 15.1 Hct 42.5 MCV 88.4 MCH 31.3 MCHC 35.4 RDW 13.0 Plt Count 197 Neut % (Auto) 60.6 Lymph % (Auto) 28.0 Lumpkin % (Auto) 7.1 Eos % (Auto) 3.5 Baso % (Auto) 0.8 Neut # (Auto) 3400 Lymph # (Auto) 1600 [place] # (Auto) 400 Eos # (Auto) 200 Baso # (Auto) 0 Sodium 137 Potassium 3.7 Chloride 105 Carbon Dioxide 29 BUN 17 Creatinine 0.80 Estimated GFR > 60 BUN/Creatinine Ratio 21.3 Glucose 278 H D Calcium 8.4 Troponin I 0.016 0.091 H Triglycerides 192 H Cholesterol 185 LDL Cholesterol, Calc 106 H HDL Cholesterol 41 TSH 3.04 U Random Total Protein Urine Creatinine Protein/Creatinin Ratio 04/14/24 04/14/24 09:30 09:55 WBC RBC Hgb Hct MCV MCH MCHC RDW Plt Count Neut % (Auto) Lymph % (Auto) [place]kin % (Auto) Eos % (Auto) Baso % (Auto) Neut # (Auto) Lymph # (Auto) [place]umpkin # (Auto) Eos # (Auto) Baso # (Auto) Sodium Potassium Chloride Carbon Dioxide BUN Creatinine Estimated GFR BUN/Creatinine Ratio Glucose Calcium Troponin I 0.069 H Triglycerides Cholesterol LDL Cholesterol, Calc HDL Cholesterol TSH U Random Total Protein 11 Urine Creatinine 160.21 Protein/Creatinin Ratio 0.06 PFSH Social History household members: none Smoking Status: Never smoker Discharge Plan Discharge Plan Patient Disposition: Home Provider Discharge Comment: You were admitted with extremely high blood pressures and A1c 11%. I have put you on new blood pressure medications, lantus, metformin, atorvastatin and a baby aspirin daily. Please get a new PCP to help manage your diabetes and hypertension. Your goal BP is <140/90 and goal A1c is <7%. You will likely also need mealtime insulin, but I will let your PCP prescribe this. You should have bloodwork done to check your electrolytes when you see your PCP as well. Please pickup a around $30 Omron blood pressure cuff and check your numbers at home and write them down for your PCP. Discharge orders & Medications Prescriptions: New atorvastatin 20 mg Tablet 20 mg PO BEDTIME Qty: 30 0RF chlorthalidone 25 mg Tablet 12.5 mg PO BEDTIME Qty: 60 0RF insulin glargine [Lantus Solostar U-100 Insulin] 100 unit/mL (3 mL) insulin pen 25 unit SUBCUT QAM Qty: 15 0RF lisinopril 20 mg Tablet 20 mg PO BID Qty: 60 0RF aspirin 81 mg Tablet,Delayed Release (Dr/Ec) 81 mg PO DAILY Qty: 30 0RF metformin 1,000 mg tablet 1,000 mg PO BIDWMEAL Qty: 60 0RF Discontinued losartan-hydrochlorothiazide 100-25 mg Tablet 1 tab PO DAILY Follow up/Referrals: Doctor Zambrano MD [Primary Care Provider] - Visit Report/Discharge Packet Stand Alone Forms: Patient Portal/API Discharge Data Primary Care Provider: Doctor Juan Manuel Attending Provider: Mariusz Garcia Admit Date/Time: 04/13/24 18:00 Quality VTE Deep Vein Thrombosis/Pulmonary Embolism Present on Admission: No
--- NOTE | 2024-04-14 14:59 | CM.DANOTE ---
Discharge Planning/Care Management CM Discharge Assessment Start: 04/14/24 14:54 Freq: Status: Active Protocol: Document 04/14/24 14:54 SPENCER (Rec: 04/14/24 14:59 SPENCER [id number]) Discharge Planning Assessment Assigned Sales Operations Director DEBBIE [place] DPOA/Assigned Designee Name None listed Advance Directives? No History Provided By Patient Prior Living Arrangements House Household Members none Type of transporation used prior to Drives own vehicle admit Independent with ADL's Yes Is patient alert and oriented? Yes Barriers to Discharge No Comment Discharged home today with new Rx -new blood pressure medications, lantus, metformin , atorvastatin and a baby aspirin daily. Patient at functional baseline, indp in all aspects. No needs identified by yovanny team. Discharge Plan Home Transportation Arrangement Self Referrals Initiated None needed
[2024-04-23 23:06] LABS: Calcium 8.9 mg/dL (8.7-10.2); Parathyroid Hormone, Intact 52 pg/mL (15-65)
[2024-04-24 12:26] LABS: Plama Renin, LC/MS/MS 0.582
[2024-04-24 12:27] LABS: Aldosterone/Renin Activity Rat 4.5
== END 2024-04-14 13:24 | disposition home or self-care (01) ==
LOC: ED 09:30 → AC 18:00
PROVIDERS: Admitting Provider Student in an Organized Health Care Education/Training Program; Emergency Provider Emergency Medicine; Referring Provider Emergency Medicine; Visit Provider Student in an Organized Health Care Education/Training Program
DX: I16.0 Hypertensive urgency (principal); I16.1 Hypertensive emergency; I10 Essential (primary) hypertension; E11.65 Type 2 diabetes mellitus with hyperglycemia; Z79.4 Long term (current) use of insulin; Z79.84 Long term (current) use of oral hypoglycemic drugs
CPT/HCPCS: 36415; 71045; 71275; 74174; 80048; 80053; 80061; 82088; 82310; 82550; 82570; 82962; 83036; 83690; 83735; 83970; 84156; 84244; 84443; 84484; 85025; 85610; 85730; 93005; 93306; 96372; 96374; 96375; 99284; 99291; G0378; J0360; J1815; Q9967

== ENCOUNTER 2024-09-16 11:20 | Emergency (ER) | payer OTHER, SELFPAY ==
[2024-04-13 18:08] VITALS: BMI 29.5
[2024-09-16 11:26] VITALS: PULSE 83; O2SAT 96
[2024-09-16 11:27] VITALS: BP 271/134; PULSE 83; RESP 14; TEMP 37.2; O2SAT 96; BMI 30.2
[2024-09-16 11:28] VITALS: BP 271/134; PULSE 86; O2SAT 95
[2024-09-16 11:30] VITALS: BP 244/124; PULSE 78; O2SAT 95
--- NOTE | 2024-09-16 11:32 | EKG_ITS ---
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
[2024-09-16 12:00] VITALS: BP 207/95; PULSE 74; O2SAT 91
--- NOTE | 2024-09-16 12:00 | ED_ITS ---
HPI - General Adult General Chief complaint: Hypertension Stated complaint: High blood pressure Time Seen by Provider: 09/16/24 12:00 Source: patient, RN notes reviewed and old records reviewed Mode of arrival: Ambulatory Limitations: no limitations History of Present Illness HPI narrative: 58-year-old male known history of hypertension currently untreated presents after being sent by primary care for hypertension. Patient seen here in April for similar after being in the dentist office with elevated blood pressures had workup was observed overnight started on anti hypertensive and discharged home with lisinopril, chlorthalidone patient also notes he is out of his Lantus currently. Patient states he has been off of his medications since July or June when his 90 day prescription ran out. He did attempt to set up primary care follow up but took some time. He states no headaches, denies any chest pain, states he occasionally feels a little bit of shortness a breath with exertion but none recently. Denies any diaphoresis. No nausea no vomiting no issues with bowel movements or urination, no swelling in extremities. Patient states home medications include NovoLog which he still has Lantus which he is out of, he ran out of the glucose monitors for his arm in his out of his 2 blood pressure medications. 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 No known drug allergies. No tobacco, has a glass of wine most days or recreational drugs. Establish for primary care today with Dr. Abdalla. Related Data Previous Rx's Medication Instructions Recorded aspirin 81 mg tablet,delayed 81 mg PO DAILY #30 tabs 04/14/24 release atorvastatin 20 mg tablet 20 mg PO BEDTIME #30 tabs 04/14/24 chlorthalidone 25 mg tablet 12.5 mg (1/2 x 25 mg) PO BEDTIME 04/14/24 #60 tabs insulin glargine 100 unit/mL (3 25 unit (0.25 mL) SUBCUT QAM #15 mL 04/14/24 mL) subcutaneous pen (Lantus Solostar U-100 Insulin) lisinopril 20 mg tablet 20 mg PO BID #60 tabs 04/14/24 metformin 1,000 mg tablet 1,000 mg PO BIDWMEAL #60 tabs 04/14/24 blood-glucose sensor (FreeStyle #1 ea 09/16/24 Live 3 Plus Sensor device) chlorthalidone 25 mg tablet 25 mg PO DAILY #90 tabs 09/16/24 insulin glargine 100 unit/mL (3 8 unit (0.08 mL) SUBCUT DAILY 90 09/16/24 mL) subcutaneous pen (Lantus days #15 mL Solostar U-100 Insulin) lisinopril 20 mg tablet 20 mg PO DAILY #90 tabs 09/16/24 Allergies Allergy/AdvReac Type Severity Reaction Status Date / Time No Known Drug Allergies Allergy Verified 09/16/24 10:52 Review of Systems Review of Systems ROS Unobtainable: All systems reviewed & are unremarkable except as noted in HPI and below Patient History Social History household members: none Smoking Status: Never smoker Smoking Status: Never smoker alcohol intake frequency: 0-2 drinks per day Substance Use Type: does not use Exam Narrative Exam Narrative: GENERAL: Alert and oriented x three, well-appearing male in no acute distress, HEENT: Head normocephalic, atraumatic, EOMI, pupils reactive, face symmetric, moist mucous membranes, no facial droop NECK: Supple, full range of motion CARDIOVASCULAR: Regular rate and rhythm without murmurs, rubs or gallops. No e elpidio bilateral lower extremities. RESPIRATORY: Breath sounds equal bilaterally, no wheezes rales or rhonchi. ABDOMEN: Soft, nontender. Normoactive bowel sounds all 4 quadrants. No guarding or rebound, rigidity, no mass : No CVA tenderness EXTREMITIES: Normal range of motion, no clubbing or edema. Neurovascularly intact NEUROLOGICAL: Cranial nerves II through XII grossly intact. Moving all ex tremities. Normal gait. SKIN: Warm, dry, no petechiae, no rashes or lesions. Initial Vital Signs Initial Vital Signs: Vital Signs Pulse Rate 83 09/16/24 11:26 Pulse Oximetry 96 09/16/24 11:26 Course Vital Signs Vital signs: Vital Signs - 8 hr 09/16/24 11:26 09/16/24 11:27 09/16/24 11:28 Temperature 98.9 F Pulse Rate 83 83 86 Respiratory Rate 14 Blood Pressure 271/134 H Pulse Oximetry 96 96 95 Oxygen Delivery Method Room Air 09/16/24 11:28 09/16/24 11:30 09/16/24 11:30 Temperature Pulse Rate 78 Respiratory Rate Blood Pressure 271/134 H 244/124 H Pulse Oximetry 95 Oxygen Delivery Method 09/16/24 12:00 09/16/24 12:00 09/16/24 12:30 Temperature Pulse Rate 74 75 Respiratory Rate Blood Pressure 207/95 H Pulse Oximetry 91 95 Oxygen Delivery Method Medical Decision Making ECG Data Attestation: I personally reviewed and interpreted this ECG as follows: Prior ECG tracings: available for review Interpretation: Sinus rhythm, left anterior fascicular block rate of 79 [place] 198 QRS of 112 QTC of 465, no acute ST elevation does have T-wave inversions laterally. Patient has prior from 04/13/2024 which appears similar with no acute or dynamic changes today. MDM Narrative Medical decision making narrative: 58-year-old male quite hypertensive upon arrival has been improving went from 270/142 and trended downwards to 207/95 here in the department. Patient is still hypertensive. Notes occasional some shortness of breath with exertion but describes it as very mild denies any other symptoms. Patient had very similar presentation in April. Discussed obtaining labs, chest x-ray to evaluate for end-organ disease. Suspicion for intracranial bleed is low patient has not had any headaches recently. No neurologic changes. Patient would rather hold off refill his medications as he states nothing has really changed from his last visit and states he had prefer not to perform workup. EKG shows sinus rhythm does have some T-waves inversions laterally and has not totally normal but appears very similar to EKG from 04/13/2024. Prescription for patient's blood pressure medications, Lantus were sent. All questions answered discussed return precautions. Discharge Plan Departure Patient Disposition: Home Clinical Impression: Hypertension Instructions: DI for High Blood Pressure Activity Restrictions/Additional Instructions: Please follow up with primary care so he can have regular refills of your medication. Untreated blood pressure can ultimately lead to strokes, heart attacks and organ failure such as kidney failure. Refills for your medications were sent to [facility] in [place]. Please return if you have new chest pain, shortness of breath, lightheadedness or passing out, any headaches, persistent nausea or vomiting, diaphoresis, new swelling of your extremities or other new or concerning changes. Prescriptions: New lisinopril 20 mg tablet 20 mg PO DAILY Qty: 90 0RF chlorthalidone 25 mg tablet 25 mg PO DAILY Qty: 90 0RF insulin glargine [Lantus Solostar U-100 Insulin] 100 unit/mL (3 mL) insulin pen 8 unit SUBCUT DAILY 90 Days Qty: 15 0RF (DME) FreeStyle Live 3 Plus Sensor Device See Rx Instructions .Route Qty: 1 3RF Rx Instructions: As directed No Action atorvastatin 20 mg Tablet 20 mg PO BEDTIME Qty: 30 0RF chlorthalidone 25 mg Tablet 12.5 mg PO BEDTIME Qty: 60 0RF insulin glargine [Lantus Solostar U-100 Insulin] 100 unit/mL (3 mL) insulin pen 25 unit SUBCUT QAM Qty: 15 0RF lisinopril 20 mg Tablet 20 mg PO BID Qty: 60 0RF aspirin 81 mg Tablet,Delayed Release (Dr/Ec) 81 mg PO DAILY Qty: 30 0RF metformin 1,000 mg tablet 1,000 mg PO BIDWMEAL Qty: 60 0RF Referrals: Danna Zuniga MD [Primary Care Provider] - Stand Alone Forms: Patient Portal/API/Survey
[2024-09-16 12:30] VITALS: PULSE 75; O2SAT 95
== END 2024-09-16 12:37 | disposition home or self-care (01) ==
PROVIDERS: Emergency Provider Emergency Medicine; PCP Family Medicine
DX: I10 Essential (primary) hypertension (principal); I44.7 Left bundle-branch block, unspecified
CPT/HCPCS: 93005; 93010; 99281; 99283

== ENCOUNTER 2024-12-02 16:29 | Emergency (ER) | payer OTHER, SELFPAY ==
[2024-04-13 18:08] VITALS: BMI 29.5
[2024-12-02] VITALS (54 sets, daily range): BP systolic 170–229; BP diastolic 76–111; PULSE 76–101; RESP 9–30; TEMP 36.8; O2SAT 94–99; BMI 30.2
--- NOTE | 2024-12-02 16:33 | EKG_ITS ---
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
--- NOTE | 2024-12-02 16:37 | DI.RAD.S_ITS ---
PROCEDURE: XR CHEST 1V INDICATIONS: chest pain TECHNIQUE: One view of the chest was acquired. COMPARISON: Located Within [facility], CR, XR CHEST 1V, 04/13/2024, 9:27. FINDINGS: Surgical changes and devices: None. Lungs and pleura: Lungs are clear. No pleural effusions or pneumothorax. Mediastinum: Mediastinal contours appear normal. Heart size is normal. Bones and chest wall: No suspicious bony lesions. Overlying soft tissues appear unremarkable. IMPRESSION: No acute cardiothoracic process. Dictated by: Tyson Harrison M.D. on 12/02/2024 at 17:10 Approved by: Tyson Harrison M.D. on 12/02/2024 at 17:10
--- NOTE | 2024-12-02 17:24 | PC.NURSE ---
Pt reports that he feels sleep, but denies pain anywhere throughout his body. A/O X4 Ambulatory.
[2024-12-02 17:31] LABS: Add Manual Diff / Slide Review NO; Basophils Absolute Auto 0 /uL (0-100); Basophils Percent Auto 0.7 % (0-2); Eosinophils Absolute Auto 100 /uL (0-450); Eosinophils Percent Auto 2.2 % (2-4); Hematocrit 42.7 % (41-53); Hemoglobin 15.2 g/dL (13.5-17.5); Lymphocytes Absolute Auto 1200 /uL (1100-4500); Lymphocytes Percent Auto 19.5 % (25-40); Mean Corpuscular HGB Conc 35.6 % (30-36); Mean Corpuscular Hemoglobin 31.4 PG (26-34); Mean Corpuscular Volume 88.2 fL (80-100); Monocytes Absolute Auto 300 /uL (0-900); Monocytes Percent Auto 4.7 % (3-14); Neutrophils Absolute Auto 4600 /uL (1500-7000); Neutrophils Percent Auto 72.9 % (50-75); Platelet Count 225 X10^3/uL (150-400); Red Blood Cell Count 4.85 X10^6/uL (4.5-5.9); Red Cell Distribution Width 12.6 % (11.6-14.8); White Blood Cell Count 6.4 X10^3/uL (4.5-11.0)
[2024-12-02 17:35] LABS: INR 0.9 (0.9-1.3); Prothrombin Time 10.5 SECONDS (9.4-12.5)
[2024-12-02 17:38] LABS: PTT Partial Thromboplastin Tim 32 SECONDS (25.1-36.5)
[2024-12-02 17:49] LABS: Alanine Aminotransferase 42 IU/L (<50); Albumin 4.4 g/dL (3.5-5.0); Albumin Globulin Ratio 1.6 (1.0-2.8); Alkaline Phosphatase 125 U/L (38-126); Aspartate Aminotransferase 35 IU/L (17-59); BUN Creatinine Ratio 20.2 (6-22); Bilirubin Total 0.6 mg/dL (0.2-1.3); Blood Urea Nitrogen 22 mg/dL (9-20); Calcium 9.2 mg/dL (8.4-10.2); Carbon Dioxide 31 mmol/L (22-32); Chloride 94 mmol/L (98-107); Creatine Kinase 194 U/L (55-170); Estimated Glomerular Filt Rate > 60 mL/min (>60); Globulin 2.8 g/dL (1.7-4.1); Glucose 386 mg/dL (70-100); HEMOLYSIS < 15 (0-50); Lipase 126 U/L (23-300); Magnesium 1.8 mg/dL (1.6-2.3); Potassium 3.8 mmol/L (3.4-5.1); Sodium 135 mmol/L (137-145); Total Protein 7.2 g/dL (6.3-8.2)
[2024-12-02 18:01] LABS: NT-proBNP (BNP-Adult 18+) 278 pg/mL (<125); Troponin I < 0.012 ng/mL (0.01-0.034)
--- NOTE | 2024-12-02 18:05 | ED_ITS ---
HPI - General Adult General Chief complaint: Hypertension Stated complaint: chest px BP 260/140 Time Seen by Provider: 12/02/24 18:03 Source: patient Mode of arrival: Ambulatory History of Present Illness HPI narrative: 59-year-old male with history of hypertension for which he has been prescribed lisinopril and chlorthalidone, found to have elevated blood pressure at dental visit 2 days ago, saw his regular provider today in clinic this afternoon, also had markedly elevated blood pressure, referred here for further evaluation. Triage complaint of chest pain, however patient denies any chest pain now or recent. He also denies shortness of breath. He has no pain to his neck, arm, back, shoulder blades, legs. He has been taking lisinopril once daily in the morning, although medications in the past have been listed twice daily. He has been taking his chlorthalidone as well, both blood pressure medications taken a proximally noon each day. He denies any headache. He denies weakness to face arm or leg. No problems with ambulation. No visual complaints. Related Data Home Medications Medication Instructions Recorded Confirmed aspirin 325 mg tablet 325 mg PO DAILY 12/02/24 12/02/24 Previous Rx's Medication Instructions Recorded insulin glargine 100 unit/mL (3 25 unit (0.25 mL) SUBCUT QAM #15 mL 04/14/24 mL) subcutaneous pen (Lantus Solostar U-100 Insulin) blood-glucose sensor (FreeStyle #1 ea 09/16/24 Live 3 Plus Sensor device) insulin glargine 100 unit/mL (3 8 unit (0.08 mL) SUBCUT DAILY 90 09/16/24 mL) subcutaneous pen (Lantus days #15 mL Solostar U-100 Insulin) atorvastatin 20 mg tablet 20 mg PO BEDTIME #90 tabs 10/13/24 chlorthalidone 25 mg tablet 25 mg PO DAILY #90 tabs 10/13/24 lisinopril 20 mg tablet 20 mg PO DAILY #90 tabs 10/13/24 metformin 1,000 mg tablet 1,000 mg PO BIDWMEAL #90 tabs 10/13/24 amlodipine 5 mg tablet 5 mg PO DAILY #30 tabs 12/02/24 insulin regular human 100 unit/mL 1 sliding scale dose SUBCUT 12/02/24 (3 mL) subcutaneous pen (Novolin R USEASDIRECTD #15 mL FlexPen) Allergies Allergy/AdvReac Type Severity Reaction Status Date / Time No Known Drug Allergies Allergy Verified 12/02/24 15:53 Patient History Medical History (Updated 12/02/24 @ 22:11 by Mando Harris MD) Hypertension Surgical History (Updated 10/04/24 @ 16:45 by Danna Zuniga MD) History of umbilical hernia repair Social History household members: none Smoking Status: Never smoker Smoking Status: Never smoker alcohol intake frequency: 0-2 drinks per day Exam Narrative Exam Narrative: GENERAL: Well-developed patient, in mild distress. HEAD: Atraumatic. Normocephalic. EYES: Pupils equal round and reactive. Extraocular motions intact. No scleral icterus. No injection or drainage. ENT: Nose without bleeding, purulent drainage. Throat without erythema, tonsillar hypertrophy or exudate. Airway patent. NECK: Trachea midline. Non tender CARDIOVASCULAR: Regular rate and rhythm without murmurs, gallops, or rubs. RESPIRATORY: Clear to auscultation. Breath sounds equal bilaterally. No wheezes, rales, or rhonchi. GASTROINTESTINAL: Abdomen soft, non-tender, nondistended. EXTREMITIES: No edema or joint tenderness. BACK: Nontender without deformity or crepitance. No flank tenderness. NEURO: AOx3. Motor functions grossly nonfocal SKIN: No rash or erythema of visible areas Initial Vital Signs Initial Vital Signs: Vital Signs Temperature 98.2 F 12/02/24 16:37 Pulse Rate 98 H 12/02/24 16:37 Respiratory Rate 18 12/02/24 16:37 Blood Pressure 209/95 H 12/02/24 16:37 Pulse Oximetry 95 12/02/24 16:37 Oxygen Delivery Method Room Air 12/02/24 16:37 Course Orders Ordered: ED Orders 12/02/24 17:15 Complete Blood Count AUTO DIFF Stat Comprehensive Metabolic Panel Stat Lipase Stat Magnesium Stat NT-proBNP (BNP-Adult 18+) Stat PTT Partial Thromboplastin Chance Stat Prothrombin Time INR Stat Troponin & CK Cardiac Panel Stat 12/02/24 18:13 CT angio chest abdomen pelvis Stat 12/02/24 19:12 Troponin I Stat Discontinued Medications Amlodipine Besylate (Amlodipine 5 Mg Tablet) 5 mg PO NOW ONE Stop: 12/02/24 20:16 Last Admin: 12/02/24 20:22 Dose: 5 mg Documented By: Aspirin (Aspirin 81 Mg Chew Tab) 324 mg PO NOW ONE Stop: 12/02/24 16:38 Last Admin: 12/02/24 17:58 Dose: Not Given Documented By: Insulin Human Regular (Insulin Regular 100 Unit/Ml 3 Ml Vial) 5 unit SUBCUT NOW ONE Stop: 12/02/24 18:28 Last Admin: 12/02/24 18:33 Dose: 5 unit Documented By: Co-signed By: MLM Insulin Human Regular (Insulin Regular 100 Unit/Ml 3 Ml Vial) 10 unit SUBCUT NOW ONE Stop: 12/02/24 20:17 Last Admin: 12/02/24 20:22 Dose: 10 unit Documented By: Co-signed By: NICO Lisinopril (Lisinopril 20 Mg Tablet) 20 mg PO NOW ONE Stop: 12/02/24 18:27 Last Admin: 12/02/24 18:34 Dose: 20 mg Documented By: Nitroglycerin (Nitroglycerin 0.4 Mg Sl Tab) 0.4 mg SL [id number] PRN PRN Reason: Chest Pain Last Admin: 12/02/24 18:14 Dose: 0.4 mg Documented By: Vital Signs Vital signs: Vital Signs - 8 hr 12/02/24 18:14 12/02/24 18:22 12/02/24 18:22 Pulse Rate 85 101 H Respiratory Rate 24 Blood Pressure 218/100 H 170/103 H Pulse Oximetry Oxygen Delivery Method 12/02/24 18:30 12/02/24 18:31 12/02/24 18:31 Pulse Rate 91 H 89 Respiratory Rate 22 12 Blood Pressure 197/93 H Pulse Oximetry 97 97 Oxygen Delivery Method Room Air 12/02/24 18:34 12/02/24 18:50 12/02/24 18:50 Pulse Rate 85 89 Respiratory Rate 16 Blood Pressure 218/100 H 214/98 H Pulse Oximetry 97 Oxygen Delivery Method 12/02/24 18:55 12/02/24 18:55 12/02/24 19:00 Pulse Rate 86 Respiratory Rate 15 Blood Pressure 207/95 H 206/98 H Pulse Oximetry 98 Oxygen Delivery Method 12/02/24 19:00 12/02/24 19:05 12/02/24 19:05 Pulse Rate 84 83 Respiratory Rate 20 16 Blood Pressure 194/95 H Pulse Oximetry 97 97 Oxygen Delivery Method 12/02/24 19:10 12/02/24 19:10 12/02/24 19:13 Pulse Rate 82 81 Respiratory Rate 17 22 Blood Pressure 200/90 H Pulse Oximetry 96 98 Oxygen Delivery Method 12/02/24 19:14 12/02/24 19:14 12/02/24 19:15 Pulse Rate 81 Respiratory Rate 18 Blood Pressure 197/93 H 198/93 H Pulse Oximetry 98 Oxygen Delivery Method 12/02/24 19:15 12/02/24 19:20 12/02/24 19:20 Pulse Rate 81 84 Respiratory Rate 16 17 Blood Pressure 209/99 H Pulse Oximetry 98 98 Oxygen Delivery Method Room Air 12/02/24 19:25 12/02/24 19:25 12/02/24 19:30 Pulse Rate 83 Respiratory Rate 9 L Blood Pressure 194/81 H 194/90 H Pulse Oximetry 99 Oxygen Delivery Method 12/02/24 19:30 12/02/24 19:35 12/02/24 19:35 Pulse Rate 85 83 Respiratory Rate 15 14 Blood Pressure 201/94 H Pulse Oximetry 97 97 Oxygen Delivery Method 12/02/24 19:40 12/02/24 19:40 12/02/24 19:45 Pulse Rate 83 79 Respiratory Rate 15 15 Blood Pressure 204/95 H Pulse Oximetry 98 96 Oxygen Delivery Method 12/02/24 19:45 12/02/24 19:50 12/02/24 19:50 Pulse Rate 80 Respiratory Rate 16 Blood Pressure 204/95 H 202/95 H Pulse Oximetry 97 Oxygen Delivery Method 12/02/24 19:55 12/02/24 19:55 12/02/24 20:00 Pulse Rate 80 Respiratory Rate 16 Blood Pressure 186/92 H 201/93 H Pulse Oximetry 98 Oxygen Delivery Method 12/02/24 20:00 12/02/24 20:05 12/02/24 20:05 Pulse Rate 80 80 Respiratory Rate 16 15 Blood Pressure 191/85 H Pulse Oximetry 98 97 Oxygen Delivery Method 12/02/24 20:10 12/02/24 20:10 12/02/24 20:15 Pulse Rate 79 Respiratory Rate 27 H Blood Pressure 204/93 H 199/81 H Pulse Oximetry 97 Oxygen Delivery Method 12/02/24 20:15 12/02/24 20:20 12/02/24 20:20 Pulse Rate 80 86 Respiratory Rate 15 18 Blood Pressure 205/93 H Pulse Oximetry 98 98 Oxygen Delivery Method 12/02/24 20:25 12/02/24 20:25 12/02/24 20:30 Pulse Rate 89 81 Respiratory Rate 25 H 17 Blood Pressure 209/94 H Pulse Oximetry 98 98 Oxygen Delivery Method 12/02/24 20:30 12/02/24 20:35 12/02/24 20:35 Pulse Rate 79 Respiratory Rate 16 Blood Pressure 198/84 H 187/86 H Pulse Oximetry 98 Oxygen Delivery Method 12/02/24 20:40 12/02/24 20:40 12/02/24 20:45 Pulse Rate 81 Respiratory Rate 17 Blood Pressure 195/88 H 209/99 H Pulse Oximetry 98 Oxygen Delivery Method 12/02/24 20:45 12/02/24 20:50 12/02/24 20:50 Pulse Rate 80 85 Respiratory Rate 21 23 Blood Pressure 206/89 H Pulse Oximetry 98 97 Oxygen Delivery Method 12/02/24 20:56 12/02/24 20:56 12/02/24 21:00 Pulse Rate 86 78 Respiratory Rate 30 H 17 Blood Pressure 211/95 H Pulse Oximetry 97 97 Oxygen Delivery Method 12/02/24 21:00 12/02/24 21:05 12/02/24 21:05 Pulse Rate 81 Respiratory Rate 18 Blood Pressure 205/76 H 189/86 H Pulse Oximetry 97 Oxygen Delivery Method 12/02/24 21:10 12/02/24 21:10 12/02/24 21:15 Pulse Rate 79 81 Respiratory Rate 23 17 Blood Pressure 194/88 H Pulse Oximetry 96 97 Oxygen Delivery Method 12/02/24 21:15 12/02/24 21:20 12/02/24 21:20 Pulse Rate 77 Respiratory Rate 19 Blood Pressure 193/90 H 182/79 H Pulse Oximetry 97 Oxygen Delivery Method 12/02/24 21:25 12/02/24 21:25 12/02/24 21:30 Pulse Rate 78 Respiratory Rate 19 Blood Pressure 191/88 H 206/94 H Pulse Oximetry 97 Oxygen Delivery Method 12/02/24 21:30 12/02/24 21:35 12/02/24 21:35 Pulse Rate 82 81 Respiratory Rate 18 23 Blood Pressure 174/81 H Pulse Oximetry 96 96 Oxygen Delivery Method 12/02/24 21:40 12/02/24 21:40 12/02/24 21:45 Pulse Rate 81 79 Respiratory Rate 20 17 Blood Pressure 171/81 H Pulse Oximetry 96 96 Oxygen Delivery Method 12/02/24 21:45 12/02/24 21:50 12/02/24 21:50 Pulse Rate 77 Respiratory Rate 17 Blood Pressure 177/81 H 187/88 H Pulse Oximetry 96 Oxygen Delivery Method 12/02/24 21:55 12/02/24 21:55 12/02/24 22:00 Pulse Rate 77 76 Respiratory Rate 19 17 Blood Pressure 189/88 H Pulse Oximetry 96 96 Oxygen Delivery Method 12/02/24 22:00 12/02/24 22:05 12/02/24 22:05 Pulse Rate 77 Respiratory Rate 18 Blood Pressure 191/89 H 184/85 H Pulse Oximetry 95 Oxygen Delivery Method 12/02/24 22:10 12/02/24 22:10 Pulse Rate 76 Respiratory Rate 18 Blood Pressure 182/77 H Pulse Oximetry 97 Oxygen Delivery Method Medical Decision Making Lab Data Lab results reviewed: Yes I reviewed the patient's lab results. Lab results narrative: White blood cell count 6400, hemoglobin 15, platelets adequate. Glucose 386, Sodium 135, potassium 3.8, chloride 94, serum CO2 31, BUN 22 with creatinine 1.09. LFTs and lipase unremarkable. Troponin negative/unmeasurable. BNP not elevated. 12/02/24 17:15 12/02/24 17:15 Labs: Lab Results 12/02/24 12/02/24 Range/Units 17:15 19:12 WBC 6.4 (4.5-11.0) X10^3/uL RBC 4.85 (4.5-5.9) X10^6/uL Hgb 15.2 (13.5-17.5) g/dL Hct 42.7 (41-53) % MCV 88.2 (80-100) fL MCH 31.4 (26-34) PG MCHC 35.6 (30-36) % RDW 12.6 (11.6-14.8) % Plt Count 225 (150-400) X10^3/uL Neut % (Auto) 72.9 (50-75) % Lymph % (Auto) 19.5 L (25-40) % Navarro % (Auto) 4.7 (3-14) % Eos % (Auto) 2.2 (2-4) % Baso % (Auto) 0.7 (0-2) % Neut # (Auto) 4600 (9247-0037) /uL Lymph # (Auto) 1200 (0441-0706) /uL Navarro # (Auto) 300 (0-900) /uL Eos # (Auto) 100 (0-450) /uL Baso # (Auto) 0 (0-100) /uL PT 10.5 (9.4-12.5) SECONDS INR 0.9 (0.9-1.3) APTT 32 (25.1-36.5) SECONDS Sodium 135 L (137-145) mmol/L Potassium 3.8 (3.4-5.1) mmol/L Chloride 94 L (98-107) mmol/L Carbon Dioxide 31 (22-32) mmol/L BUN 22 H (9-20) mg/dL Creatinine 1.09 (0.66-1.25) mg/dL Estimated GFR > 60 (>60) mL/min BUN/Creatinine Ratio 20.2 (6-22) Glucose 386 H (70-100) mg/dL Calcium 9.2 (8.4-10.2) mg/dL Magnesium 1.8 (1.6-2.3) mg/dL Total Bilirubin 0.6 (0.2-1.3) mg/dL AST 35 (17-59) IU/L ALT 42 (<50) IU/L Alkaline Phosphatase 125 (38-126) U/L Total Creatine Kinase 194 H (55-170) U/L Troponin I < 0.012 0.014 (0.01-0.034) ng/mL NT-Pro-B Natriuret Pep 278 H (<125) pg/mL Total Protein 7.2 (6.3-8.2) g/dL Albumin 4.4 (3.5-5.0) g/dL Globulin 2.8 (1.7-4.1) g/dL Albumin/Globulin Ratio 1.6 (1.0-2.8) Lipase 126 (23-300) U/L Point of Care Testing Glucose POC 256 Urine Dip Bedside Urine Glucose 1000 mg/dl Bedside Urine Bilirubin - Negative Bedside Urine Ketone - Negative Urine Specific Pemberton 1.020 Bedside Urine Occult Blood - Negative Bedside Urine pH 6.0 Bedside Urine Protein - Negative Bedside Urine Urobilinogen - Negative Bedside Urine Nitrite - Negative Bedside Urine Leukocytes - Negative Esterase Point of care testing: Point of Care Testing Glucose POC 256 Urine Dip Bedside Urine Glucose 1000 mg/dl Bedside Urine Bilirubin - Negative Bedside Urine Ketone - Negative Urine Specific [place] 1.020 Bedside Urine Occult Blood - Negative Bedside Urine pH 6.0 Bedside Urine Protein - Negative Bedside Urine Urobilinogen - Negative Bedside Urine Nitrite - Negative Bedside Urine Leukocytes - Negative Esterase Imaging Data Chest x-ray: Radiologist's Impression: [address] [address] XRay Report Signed Patient: Ford Asif MR#: [id number] : 1965 Acct:[id number] Age/Sex: 59 / M Date of Service: 12/02/24 Loc: ED Accession Number: [id number] Procedure: XR chest 1V Ordering Provider: Lupe Xavier D.O. PROCEDURE: XR CHEST 1V INDICATIONS: chest pain TECHNIQUE: One view of the chest was acquired. COMPARISON: [facility], , XR CHEST 1V, 04/13/2024, 9:27. FINDINGS: Surgical changes and devices: None. Lungs and pleura: Lungs are clear. No pleural effusions or pneumothorax. Mediastinum: Mediastinal contours appear normal. Heart size is normal. Bones and chest wall: No suspicious bony lesions. Overlying soft tissues appear unremarkable. IMPRESSION: No acute cardiothoracic process. Dictated by: Tyson Harrison M.D. on 12/02/2024 at 17:10 Approved by: Tyson Harrison M.D. on 12/02/2024 at 17:10 CT angiogram chest abdomen and pelvis: Radiologist's Impression: [address] [address] [address] Scan Report Signed Patient: Ford Asif MR#: [id number] : 1965 Acct:[id number] Age/Sex: 59 / M Date of Service: 12/02/24 Loc: ED Accession Number: [id number] Procedure: CT angio chest abdomen pelvis Ordering Provider: Mando Harris MD PROCEDURE: CT ANGIO CHEST ABDOMEN PELVIS INDICATIONS: chest pain, very hi BP, eval for dissection TECHNIQUE: Precontrast 5 mm thick sections acquired from the lung apices to the iliac crests. After the administration of intravenous contrast, 2.5 mm thick sections again acquired from the lung apices to the iliac crests. Maximum intensity projection (MIP) oblique sagittal and coronal reformats were then acquired. For radiation dose reduction, the following was used: automated exposure control. COMPARISON: [facility], CT, CT ANGIO CHEST ABDOMEN PELVIS, 04/13/2024, 16:23. FINDINGS: Image quality: Diagnostic. AORTA: No aortic aneurysm. No acute aortic syndrome. CHEST: Lower Neck: No enlarged lymph nodes. Thyroid: Small right thyroid nodule does not require dedicated imaging follow- up. Axillae: No enlarged lymph nodes. Chest Wall: Unremarkable. Lungs and Pleura: No pneumothorax or pleural effusions. No consolidation or suspicious nodules. Heart: Heart size is normal. Left ventricular wall appears thickened. No pericardial effusion. Thoracic Vessels: Main pulmonary artery measures 3.6 cm in diameter. Mediastinum and [place]: No enlarged lymph nodes. Esophagus: No wall thickening. No hiatal hernia. ABDOMEN: Liver: No solid mass. Gallbladder: No radiopaque gallstones or wall thickening. Biliary ducts: No biliary dilation. Pancreas: No ductal dilation. Spleen: Size is within normal limits. Adrenal Glands: No adrenal nodules. Kidneys and Ureters: No hydronephrosis. No solid mass. No complex renal cystic lesion which requires follow up. Stomach and Bowel: Moderate colonic stool. Small bowel loops and stomach are unremarkable. Normal appendix. Peritoneum: No abnormal intraperitoneal fluid. No free air. Ventral Wall: No hernia. Abdominal Nodes: No retroperitoneal or mesenteric adenopathy by size criteria. Vessels: Inferior vena cava is normal in size. PELVIS: Pelvic Organs: Unremarkable. Bladder: Unremarkable. Pelvic Nodes: No enlarged lymph nodes. Miscellaneous: Moderate bilateral fat containing inguinal hernias. Bones: Unremarkable. IMPRESSION: 1. Normal aorta without aneurysm or acute aortic syndrome. 2. Thickened left ventricular mendez again seen may indicate ventricular hypertrophy. 3. Main pulmonary artery measures 3.6 cm in diameter, which can be seen in the setting of pulmonary arterial hypertension. 4. No acute abnormality. Approved by: Wilfred Triana M.D. on 12/02/2024 at 19:34 ECG Data Attestation: I personally reviewed and interpreted this ECG as follows: Interpretation: Normal sinus rhythm with rate of 91, no obvious ST segment elevation or depression changes. ND 200, QRS 116, QTC 457. MDM Narrative Medical decision making narrative: 59-year-old male with history of hypertension, diabetes, hyperlipidemia with triage complaint of chest pain however he denies any current or recent chest pain, does admit to having elevated blood pressure in dentist office 2 days ago, and earlier today in PCP clinic, referred for further treatment and evaluation of his markedly high blood pressure. He did take his usual chlorthalidone and lisinopril at noon today. Afebrile, sirs screen negative, nonfocal neuro exam. Cardiopulmonary examination unremarkable, beside high BP. Labs screening sent. EKG without obvious ischemic changes. Initial troponin negative/unmeasurable. Markedly elevated initial triage blood pressure to 240/120 noted. Repeat blood pressure 210/100 improved without specific treatment. Denies chest pain. History of diabetes, glucose 300s noted, normal anion gap, subcutaneous 5 units regular subcutaneous insulin ordered. Reviewed lisinopril dosing, and previous computer medication list his dose has been listed as 20 mg twice daily, however he has only been taking it once daily. We will give an additional dose of lisinopril 20 mg now. GFR adequate, we discussed imaging of the aorta and renal vessels, he would like to proceed. CT angiogram chest abdomen and pelvis ordered. Initial troponin negative, we will repeat interval troponin. Follow up blood pressure with additional dose of lisinopril. 1929, CTA results pending, most recent blood pressure improved, 199/73 Elevated blood pressures once again, we will give p.o. amlodipine 5 mg dose. Await CTA angio results. CT angio chest abdomen and pelvis, normal aorta, no coarctation changes, no mention of any renovascular abnormalities, no acute changes. Pulmonary artery hypertension suspected, apparently no significant change from prior study, LVH also suggested. Printed copy of the report given to the patient with discussion of the results. Repeat glucose 325 after previous subcutaneous insulin 5 unit dose, we will give 10 units subcutaneous dose. Patient requests refill of his Novolin flex pen, 100 units/mL, 3 mL pen. We will send prescription also for new amlodipine 5 mg daily dose. He has supply of lisinopril, advised to increase his dose to 20 mg twice daily from once daily. Follow up with PCP advised early this week to check blood pressure and glucose control. Repeat BGM 256, improved. Last blood pressure 189/88 also improved. Discharge Plan Departure Patient Disposition: Home Clinical Impression: Hypertension, Hyperglycemia, History of diabetes mellitus Activity Restrictions/Additional Instructions: History of hypertension seemingly refractory to your usual regimen of lisinopril 20 mg once daily and chlorthalidone diuretic medication. Elevated blood pressure recent dental visit and again earlier today markedly elevated in clinic. Markedly elevated blood pressure in triage here. Initial concern for chest pain on triage notes, but you denied having any chest pain current or recent on history given to me. EKG and blood testing not suggestive of heart attack. Renal function adequate. Elevated glucose noted, history of diabetes, insulin subcutaneous doses given, improved control. CT angiogram of the chest abdomen and pelvis was performed, there was no demonstration of aortic problems or problems with renal flow to either kidney, or findings suggestive of explanation for markedly elevated blood pressure. You were given additional dose 20 mg lisinopril, advised to increase your daily dose to 20 mg twice daily for now. Additional amlodipine given 5 mg orally, prescription for further amlodipine dose. Initial markedly elevated blood pressure 240/120 eventually improved, at time of discharge/measured blood pressure was 189/88. Further titration of blood pressure control as an outpatient for now. Prescription sent to your pharmacy for new prescription amlodipine, you had supply of lisinopril to take additional daily dose. You requested refills of your Novolin pen medication for diabetes, which was sent to your pharmacy. You did receive IV contrast for the angiogram, and you take metformin, hold the dose of metformin for the next couple of days, as IV contrast can affect your kidney function while taking metformin. Continue taking your chlorthalidone diuretic medication same dosing for now. Recheck of your blood pressure advised early this next week with your regular provider. Return to this/nearest emergency department for any change worsening symptoms or any concerns prior Prescriptions: New amlodipine 5 mg tablet 5 mg PO DAILY Qty: 30 0RF Novolin R FlexPen 100 unit/mL (3 mL) insulin pen 1 sliding scale dose SUBCUT USEASDIRECTD Qty: 15 0RF No Action aspirin 325 mg tablet 325 mg PO DAILY atorvastatin 20 mg tablet 20 mg PO BEDTIME Qty: 90 3RF chlorthalidone 25 mg tablet 25 mg PO DAILY Qty: 90 3RF lisinopril 20 mg tablet 20 mg PO DAILY Qty: 90 3RF metformin 1,000 mg tablet 1,000 mg PO BIDWMEAL Qty: 90 3RF insulin glargine [Lantus Solostar U-100 Insulin] 100 unit/mL (3 mL) insulin pen 25 unit SUBCUT QAM Qty: 15 0RF insulin glargine [Lantus Solostar U-100 Insulin] 100 unit/mL (3 mL) insulin pen 8 unit SUBCUT DAILY 90 Days Qty: 15 0RF (DME) FreeStyle Live 3 Plus Sensor Device See Rx Instructions .Route Qty: 1 3RF Rx Instructions: As directed Referrals: Danna Zuniga MD [Primary Care Provider] - Stand Alone Forms: Patient Portal/API/Survey
--- NOTE | 2024-12-02 18:13 | DI.CT.S_ITS ---
PROCEDURE: CT ANGIO CHEST ABDOMEN PELVIS INDICATIONS: chest pain, very hi BP, eval for dissection TECHNIQUE: Precontrast 5 mm thick sections acquired from the lung apices to the iliac crests. After the administration of intravenous contrast, 2.5 mm thick sections again acquired from the lung apices to the iliac crests. Maximum intensity projection (MIP) oblique sagittal and coronal reformats were then acquired. For radiation dose reduction, the following was used: automated exposure control. COMPARISON: [facility], CT, CT ANGIO CHEST ABDOMEN PELVIS, 04/13/2024, 16:23. FINDINGS: Image quality: Diagnostic. AORTA: No aortic aneurysm. No acute aortic syndrome. CHEST: Lower Neck: No enlarged lymph nodes. Thyroid: Small right thyroid nodule does not require dedicated imaging follow-up. Axillae: No enlarged lymph nodes. Chest Wall: Unremarkable. Lungs and Pleura: No pneumothorax or pleural effusions. No consolidation or suspicious nodules. Heart: Heart size is normal. Left ventricular wall appears thickened. No pericardial effusion. Thoracic Vessels: Main pulmonary artery measures 3.6 cm in diameter. Mediastinum and Francisca: No enlarged lymph nodes. Esophagus: No wall thickening. No hiatal hernia. ABDOMEN: Liver: No solid mass. Gallbladder: No radiopaque gallstones or wall thickening. Biliary ducts: No biliary dilation. Pancreas: No ductal dilation. Spleen: Size is within normal limits. Adrenal Glands: No adrenal nodules. Kidneys and Ureters: No hydronephrosis. No solid mass. No complex renal cystic lesion which requires follow up. Stomach and Bowel: Moderate colonic stool. Small bowel loops and stomach are unremarkable. Normal appendix. Peritoneum: No abnormal intraperitoneal fluid. No free air. Ventral Wall: No hernia. Abdominal Nodes: No retroperitoneal or mesenteric adenopathy by size criteria. Vessels: Inferior vena cava is normal in size. PELVIS: Pelvic Organs: Unremarkable. Bladder: Unremarkable. Pelvic Nodes: No enlarged lymph nodes. Miscellaneous: Moderate bilateral fat containing inguinal hernias. Bones: Unremarkable. IMPRESSION: 1. Normal aorta without aneurysm or acute aortic syndrome. 2. Thickened left ventricular mendez again seen may indicate ventricular hypertrophy. 3. Main pulmonary artery measures 3.6 cm in diameter, which can be seen in the setting of pulmonary arterial hypertension. 4. No acute abnormality. Approved by: Wilfred Triana M.D. on 12/02/2024 at 19:34
[2024-12-02] MEDS: NITROGLYCERIN 0.4 MG SL TAB SL (18:14)
[2024-12-02] MEDS: INSULIN REGULAR 100 UNIT/ML 3 ML VIAL SUBCUT (18:33)
[2024-12-02] MEDS: lisinopriL 20 MG TABLET PO (18:34)
--- NOTE | 2024-12-02 19:22 | PC.NURSE ---
BP continues to remain 197/99. MD notified.
[2024-12-02 19:45] LABS: Troponin I 0.014 ng/mL (0.01-0.034)
[2024-12-02] MEDS: AMLODIPINE 5 MG TABLET PO (20:22)
[2024-12-02] MEDS: INSULIN REGULAR 100 UNIT/ML 3 ML VIAL 10 UNIT SUBCUT (20:22)
== END 2024-12-02 22:17 | disposition home or self-care (01) ==
PROVIDERS: Emergency Medicine; Emergency Provider Emergency Medicine; PCP Family Medicine
DX: E11.65 Type 2 diabetes mellitus with hyperglycemia (principal); Z79.4 Long term (current) use of insulin; I10 Essential (primary) hypertension; R07.9 Chest pain, unspecified
CPT/HCPCS: 36415; 71045; 71275; 74174; 80053; 81003; 82550; 82962; 83690; 83735; 83880; 84484; 85025; 85610; 85730; 93005; 96372; 99284; Q9967

== ENCOUNTER 2024-12-19 13:59 | Outpatient (RCR) | payer OTHER, SELFPAY ==
[2024-04-13 18:08] VITALS: BMI 29.5
[2024-12-19 14:32] VITALS: BP 220/100; BP 221/92; PULSE 77
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
== END 2025-03-21 14:28 | disposition home or self-care (01) ==
LOC: PHYS 13:59
PROVIDERS: Family Provider Family Medicine; PCP Family Medicine; Referring Provider Family Medicine; Visit Provider Family Medicine
DX: M54.2 Cervicalgia (principal)
CPT/HCPCS: 97162; 97535

== ENCOUNTER 2025-01-13 07:21 | Day surgery (SDC) | payer OTHER, SELFPAY ==
[2024-04-13 18:08] VITALS: BMI 29.5
--- NOTE | 2025-01-13 | PATH_ITS ---
[facility] Accession Number: [id number] No. of containers..01 Tissue . 01 Material submitted: . colon - SIGMOID POLYP . 01 Diagnosis: SIGMOID POLYP: Tubulovillous adenoma. No high-grade dysplasia or malignancy identified. [facility] 01/17/20251411 Local . 01 Electronically signed: . Randal Hare MD, Pathologist NPI- [id number] . 01 Gross description: . Received in formalin, labeled with two patient identifiers and sigmoid polyp, are multiple fragments of soft tissue and debris aggregating to 1.2 x 0.8 x 0.3 cm. Filtered and submitted in cassette A1. ([id number]) /FRR 01/17/20251411 Local . 01 Pathologist provided ICD-10: D12.5 . 01 CPT . 707185 Specimen Comment: A courtesy copy of this report has been sent to Pathology Performed at: [address] [address], [place], [place] [id number] MD Randal Hare MD Phone: [phone]
[2025-01-13] MEDS: LACTATED RINGERS 1,000 ML 42 ML IV (08:31)
[2025-01-13 09:05] VITALS: BP 193/90; PULSE 80; RESP 16; TEMP 36.3; O2SAT 99
--- NOTE | 2025-01-13 09:05 | P.HP_ITS ---
History of Present Illness History of Present Illness Date Patient Seen: 01/13/25 Time Patient Seen: 09:05 Chief complaint: Colonoscopy Narrative: 59-year-old white male, past medical history of poorly-controlled diabetes and hypertension, presents for initial screening colonoscopy. No family history of colon cancer, Crohn's disease or ulcerative colitis [facility] Medical History (Updated 01/13/25 @ 09:07 by Loi Castro MD) Colon cancer screening (01/13/25) Hypertension Surgical History (Updated 10/04/24 @ 16:45 by Danna Zuniga MD) History of umbilical hernia repair Social History household members: none Smoking Status: Never smoker alcohol intake: current Meds Home Medications and Allergies Home Medications Medication Instructions Recorded Confirmed Type atorvastatin 20 mg tablet 20 mg PO BEDTIME #90 tabs 10/13/24 01/13/25 Rx chlorthalidone 25 mg tablet 25 mg PO DAILY #90 tabs 10/13/24 01/13/25 Rx metformin 1,000 mg tablet 1,000 mg PO BIDWMEAL #90 tabs 10/13/24 01/13/25 Rx aspirin 325 mg tablet 325 mg PO DAILY 12/02/24 01/13/25 History amlodipine 5 mg tablet 10 mg (2 x 5 mg) PO DAILY #90 tabs 12/21/24 01/13/25 Rx lisinopril 20 mg tablet 20 mg PO BID #180 tabs 12/21/24 01/13/25 Rx blood-glucose meter,continuous #1 ea 12/22/24 Rx (Dexcom G6 Production Administrative Assistant) blood-glucose sensor (Dexcom G6 #9 ea 12/22/24 Rx Sensor device) blood-glucose transmitter (Dexcom #1 ea 12/22/24 Rx G6 Transmitter device) insulin glargine 100 unit/mL (3 25 unit (0.25 mL) SUBCUT QAM #15 mL 12/24/24 01/13/25 Rx mL) subcutaneous pen (Lantus Solostar U-100 Insulin) insulin regular human 100 unit/mL 1 sliding scale dose SUBCUT 01/10/25 01/13/25 Rx (3 mL) subcutaneous pen (Novolin R USEASDIRECTD #15 mL FlexPen) Allergies Allergy/AdvReac Type Severity Reaction Status Date / Time No Known Drug Allergies Allergy Verified 01/13/25 08:31 Review of Systems Review of Systems ROS: Yes All systems reviewed with the patient and are negative except as otherwise documented Exam Narrative Exam Narrative: Gen: NAD, sitting comfortably in bed, appears well HEENT: Sclera are anicteric, head is normocephalic and atraumatic, trachea is midline. CV: RRR, no JVD Resp: clear to auscultation bilaterally, equal chest wall movement bilaterally Abd: soft, nontender, normoactive bowel sounds Ext: no edema, full range of motion Neuro: Cranial nerves II-XII grossly intact, no focal deficits Skin: No erythema or ecchymosis Assessment & Plan Assessment and plan (1) Colon cancer screening: Status: Acute Assessment & Plan narrative: Patient presents for colonoscopy Risks, benefits, alternatives to colonoscopy explained, including but not limited to bowel perforation or other serious complication requiring surgery at less than 1 in 5000 colonoscopies, abdominal pain, cramping or bleeding and less than 1% of colonoscopies, and the chances that we find a diagnosis that would require further intervention of about 2%. Patient agrees to proceed. Time-Based Coding :: [TOTAL MINUTES] spent with patient and on the chart (including review of chart, obtaining history, exam, reviewing outside data, placing orders, documenting exam and treatment plan, and counseling patient) on [DATE]. PROFEE Cna Instructor Document charge(s): No
--- NOTE | 2025-01-13 09:51 | PM.OP.COLON ---
Operative Date/Time/Diagnoses Date of procedure: 01/13/25 Time of procedure: 09:51 Pre-op diagnosis: Initial screening colonoscopy Post-op diagnosis: other (Sigmoid polyp greater than 10 mm in size) Procedure & Clinicians Study performed: Colonoscopy with cold snare polypectomy Same procedure as scheduled: Yes Indications: Colon screening Surgeon: Loi Castro Procedure Notes SCOAP/Timeout: Performed Procedure in detail: Time-out was performed. Mac was induced. Patient was placed in left lateral decubitus position. The perineum was inspected without any gross abnormality. Lubricated pediatric colonoscope was inserted and advanced to the cecum. The prep was marginal, however it was adequate to identify polyps greater than 5 mm in size.. The colonoscope was withdrawn slowly inspecting the circumference of the colon. A sigmoid polyp approximately 15 mm in size was completely removed with cold snare polypectomy and retrieved. Very small polyps may have been missed, prep quality was marginally adequate. Retroflexed view of the rectum showed small, non prolapsed nonbleeding internal hemorrhoids. The scope was withdrawn the patient was taken to PACU in good condition. Scope withdrawal time: 13 Sedation minutes: 41 Findings: polyp(s) (Sigmoid) Specimen(s): other (Sigmoid polyp) Complications: none Impression: Large sigmoid polyp Post-procedure Recommendations: Colonoscopy in 3 years Plan for aftercare: Home Follow up: as needed Disposition: PACU
[2025-01-13 09:56] VITALS: BP 110/63; PULSE 68; RESP 12; TEMP 36.4; O2SAT 98
[2025-01-13 10:03] VITALS: BP 114/63; PULSE 69; RESP 15; O2SAT 96
[2025-01-13 10:06] VITALS: BP 113/80; PULSE 67; RESP 12; O2SAT 97
[2025-01-13 10:15] VITALS: BP 162/85; PULSE 66; RESP 13; TEMP 36.1; O2SAT 96
== END 2025-01-13 10:20 | disposition home or self-care (01) ==
PROVIDERS: Family Provider Family Medicine; PCP Family Medicine; Referring Provider Surgery; Visit Provider Surgery
PROC: 0DJD8ZZ Inspection of Lower Intestinal Tract, Via Natural or Artificial Opening Endoscopic (ICD-10-PCS; CPT 45378; principal; 2025-01-13 09:00)
DX: Z12.11 Encounter for screening for malignant neoplasm of colon (principal); K64.8 Other hemorrhoids; D12.5 Benign neoplasm of sigmoid colon
CPT/HCPCS: 45385; 82962; J2704

== ENCOUNTER → 2025-03-16 15:22 | Outpatient (CLI) | payer OTHER, SELFPAY ==
[2025-03-16 15:15] VITALS: BMI 29.5
--- NOTE | 2025-03-16 15:23 | DI.RAD.S_ITS ---
PROCEDURE: XR SOFT TISSUE NECK INDICATIONS: Neck pain TECHNIQUE: 2 views of the neck were acquired. COMPARISON: None. FINDINGS: Airway: The airway appears patent. Soft tissues: Prevertebral soft tissues are normal in thickness. The epiglottis and aryepiglottic folds appear normal. No soft tissue gas. Bones: No suspicious bony lesions. Multilevel degenerative changes in the spine. IMPRESSION: No acute soft tissue abnormality. Multilevel degenerative changes in the cervical spine. Approved by: Wilfred Triana M.D. on 03/16/2025 at 20:05
--- NOTE | 2025-03-16 15:23 | DI.RAD.S_ITS ---
PROCEDURE: XR CERVICAL SPINE 2V OR 3V INDICATIONS: Neck pain TECHNIQUE: 3 views of the cervical spine were acquired. COMPARISON: [facility], CR, XR SOFT TISSUE NECK, 03/16/2025, 15:37. FINDINGS: Bones: No acute fractures or dislocations to the C7 level. The lateral masses of C1 appear intact on the odontoid view. No suspicious bony lesions. Multilevel disc space narrowing and degenerative endplate changes. Multilevel uncovertebral joint and facet hypertrophy. Soft tissues: No prevertebral soft tissue swelling. IMPRESSION: 1. No acute displaced fracture or traumatic subluxation. 2. Moderate to severe multilevel spondylosis. Approved by: Wilfred Triana M.D. on 03/16/2025 at 20:00
[2025-03-16 17:29] LABS: Alanine Aminotransferase 38 IU/L (<50); Albumin 4.7 g/dL (3.5-5.0); Albumin Globulin Ratio 1.7 (1.0-2.8); Alkaline Phosphatase 73 U/L (38-126); Aspartate Aminotransferase 35 IU/L (17-59); Bilirubin Total 0.6 mg/dL (0.2-1.3); Blood Urea Nitrogen 20 mg/dL (9-20); Carbon Dioxide 30 mmol/L (22-32); Chloride 98 mmol/L (98-107); Estimated Glomerular Filt Rate > 60 mL/min (>60); Globulin 2.8 g/dL (1.7-4.1); Glucose 95 mg/dL (70-99); HEMOLYSIS < 15 (0-50); Potassium 3.6 mmol/L (3.4-5.1); Sodium 140 mmol/L (137-145); Total Protein 7.5 g/dL (6.3-8.2)
[2025-03-16 17:33] LABS: Hemoglobin A1C% w Est Avg Glu 10.1 % (4.0-6.0)
== END ==
PROVIDERS: Family Provider Family Medicine; PCP Family Medicine; Referring Provider Family Medicine; Visit Provider Family Medicine
DX: M47.812 Spondylosis without myelopathy or radiculopathy, cervical region (principal); M54.2 Cervicalgia; I10 Essential (primary) hypertension; E11.9 Type 2 diabetes mellitus without complications
CPT/HCPCS: 36415; 70360; 72040; 80053; 83036

== ENCOUNTER → 2025-05-04 10:26 | Outpatient (CLI) | payer OTHER, SELFPAY ==
[2025-03-16 15:15] VITALS: BMI 29.5
== END ==
PROVIDERS: Family Provider Family Medicine; PCP Family Medicine; Referring Provider Family Medicine; Visit Provider Family Medicine
DX: R00.2 Palpitations (principal)
CPT/HCPCS: 93246

== ENCOUNTER → 2025-07-14 12:46 | Outpatient (CLI) | payer OTHER, SELFPAY ==
[2025-03-16 15:15] VITALS: BMI 29.5
[2025-07-14 13:06] LABS: Add Manual Diff / Slide Review NO; Hematocrit 40.3 % (41-53); Hemoglobin 14.5 g/dL (13.5-17.5); Lymphocytes Absolute Auto 2100 /uL (1100-4500); Mean Corpuscular HGB Conc 36.1 % (30-36); Mean Corpuscular Hemoglobin 31.7 PG (26-34); Mean Corpuscular Volume 87.9 fL (80-100); Platelet Count 262 X10^3/uL (150-400)
[2025-07-14 13:17] LABS: Hemoglobin A1C% w Est Avg Glu 10.8 % (4.0-6.0)
[2025-07-14 13:19] LABS: Alanine Aminotransferase 39 IU/L (<50); Albumin 4.6 g/dL (3.5-5.0); Albumin Globulin Ratio 1.6 (1.0-2.8); Alkaline Phosphatase 60 U/L (38-126); Blood Urea Nitrogen 18 mg/dL (9-20); Calcium 9.7 mg/dL (8.4-10.2); Carbon Dioxide 27 mmol/L (22-32); Chloride 99 mmol/L (98-107); Estimated Glomerular Filt Rate > 60 mL/min (>60); Globulin 2.9 g/dL (1.7-4.1); Glucose 160 mg/dL (70-99); HEMOLYSIS < 15 (0-50); Potassium 4.5 mmol/L (3.4-5.1); Sodium 137 mmol/L (137-145); Total Protein 7.5 g/dL (6.3-8.2)
[2025-07-14 15:45] LABS: RBC Morphology Normal Morphology
== END ==
PROVIDERS: Family Provider Family Medicine; PCP Family Medicine; Referring Provider Family Medicine; Visit Provider Family Medicine
DX: I10 Essential (primary) hypertension (principal); E11.69 Type 2 diabetes mellitus with other specified complication; I1A.0 Resistant hypertension
CPT/HCPCS: 36415; 80053; 83036; 85025